=== PATIENT | female | born 1945 | race Caucasian/White ===

== ENCOUNTER → 2016-04-16 | Outpatient (CLI) | payer MEDICARE, BC | END | disposition home or self-care (01) | LOC: LABWHC1 10:01 | PROVIDERS: ATTEND Internal Medicine Critical Care Medicine | DX: J84.10 Pulmonary fibrosis, unspecified (principal) | CPT/HCPCS: 36415; 85652; 86038; 86200; 86431 ==

== ENCOUNTER → 2016-10-24 | Outpatient (CLI) | payer MEDICARE, BC ==
--- NOTE | 2016-10-24 08:20 | CT ---
EXAMINATION TYPE: CT chest abdomen wo con DATE OF EXAM: 10/24/2016 COMPARISON: HRCT chest 03/20/2016 HISTORY: 71-year-old female with thoracic ASD Aortic Aneurysm TECHNIQUE: Contiguous axial scanning of the chest and abdomen without IV contrast. Coronal and sagitt al reconstructions performed. CT DLP: 318.3 mGycm Automated exposure control for dose reduction was used. FINDINGS: CHEST: The heart is normal size without pericardial effusion. Mild aortic valvular calcifications are presen t along the right coronary cusp. Lack of IV contrast limits assessment of the vascular structures as well as the mediastinal and hilar structures. Within this limitation, there is ectasia of the ascending aorta at 3.7 cm. The proximal arch measures 3.3 cm, distal arch measures 2.7 cm and the upper descending thoracic aorta measures 2.4 cm. Distal descending thoracic aorta measures 2.2 cm. Small mediastinal lymph nodes are present. No thoracic lymphadenopathy by CT size criteria. Evaluation of the lungs shows some mild subpleural reticulations and patchy groundglass as well. Ther e is a 6 mm subpleural pulmonary nodule peripheral left lower lobe axial image 33, stable from 2015. No consolidation or pleural effusion. ABDOMEN: Tiny hiatal hernia. Lack of IV contrast limits assessment of the solid abdominal viscera, lymph nodes, and vascular struc tures. Noncontrast appearance of the liver, gallbladder, adrenal glands, kidneys, spleen, pancreas show no g ross abnormality. Incidental retroaortic left renal vein. Mild atherosclerotic calcifications within the abdominal aort a without aneurysm. Tiny fatty umbilical hernia. No dilated small bowel, free fluid, or free air. Mild overall stool burden. Diverticulosis in the vis ualized lower descending and sigmoid colon. No pericolonic inflammatory change. BONES: Degenerated dextroconvex scoliotic curvature of the lumbar spine with levels of severe disc/endplate degenerative change suggests that L2-L3 and L4-L5. Disc herniations are present in the lumbar spine a nd there are grade 1 retrolistheses at L1-L2, L2-L3, L3-L4 with grade 1 anterolisthesis at L4-L5. Chr onic inferior endplate Schmorl's node of T9 vertebral body. No osseous destructive process. IMPRESSION: 1. NONCONTRAST EXAM. ECTATIC ASCENDING AORTA AT 3.7 CM. 2. INTERSTITIAL CHANGES REDEMONSTRATED IN THE LUNGS. SUSPECT SOME UNDERLYING FIBROSIS. NSIP AND INDOL ENT ATYPICAL INFECTIONS ARE DIFFERENTIAL CONSIDERATIONS. 3. THE 6 MM LEFT LOWER LOBE PULMONARY NODULE IS STABLE FROM 03/20/2016. ADDITIONAL FOLLOW-UP IN 12-18 MONTHS RECOMMENDED TO ENSURE STABILITY. 4. LOWER DESCENDING AND SIGMOID COLONIC DIVERTICULOSIS. 5. MODERATE TO ADVANCED DEGENERATIVE CHANGES IN THE LUMBAR SPINE.
== END | disposition home or self-care (01) ==
LOC: RADCTMAIN 07:08
PROVIDERS: ATTEND Internal Medicine Interventional Cardiology
DX: I77.811 Abdominal aortic ectasia (principal); K57.30 Diverticulosis of large intestine without perforation or abscess without bleeding; R91.1 Solitary pulmonary nodule; I77.810 Thoracic aortic ectasia
CPT/HCPCS: 71250; 74150

== ENCOUNTER → 2016-12-11 | Outpatient (CLI) | payer MEDICARE, BC ==
[2016-12-11 09:50] LABS: ALT 31 U/L (9-52); AST 22 U/L (14-36); Cholesterol 241 mg/dL (<200); Creatine Kinase 68 U/L (30-135); HDL Cholesterol 59 mg/dL (40-60)
== END | disposition home or self-care (01) ==
LOC: LABWHC1 08:39
PROVIDERS: ATTEND Internal Medicine Interventional Cardiology
DX: E78.00 Pure hypercholesterolemia, unspecified (principal)
CPT/HCPCS: 36415; 80061; 82550; 84450; 84460

== ENCOUNTER → 2018-03-10 | Outpatient (CLI) | payer MEDICARE, BC ==
--- NOTE | 2018-03-10 12:07 | CT ---
EXAMINATION TYPE: CT chest wo con DATE OF EXAM: 03/10/2018 COMPARISON: 03/10/2017 HISTORY: Cough, alveolar condition CT DLP: 146 mGycm. Automated Exposure Control for Dose Reduction was Utilized. TECHNIQUE: High-resolution CT scan of the thorax is performed without IV contrast. High-resolution c hest CT noncontiguous imaging limits evaluation for pulmonary nodules. FINDINGS: LUNGS: There is redemonstration of subpleural reticulation throughout the lungs as seen on the prior exam of 03/10/2017 with an overall peripheral predominance. Minimal honeycombing is seen at the right lung base such as on series 7 image 47. Subpleural left lower lobe pulmonary nodule again measures 6 mm unchanged from the prior seen on series 7 image 33. Consolidation seen within the right middle lobe near the diaphragm on series 7 image 33. This improv es on supine imaging relating to atelectasis. Very mild diffuse cylindrical bronchiectasis is seen. There is no pleural effusion or pneumothorax seen. The tracheobronchial tree is patent. MEDIASTINUM: Lack of IV contrast is noted to limit evaluation for mediastinal and especially hilar ad enopathy. There are no definitive greater than 1 cm hilar or mediastinal lymph nodes. There is decrea se in size of the previously noted borderline 9 mm aorticopulmonary window lymph node now measuring 7 mm in short axis. No cardiomegaly or pericardial effusion is seen. OTHER: Diverticula are seen of the colon and the visualized upper abdomen. Mild degenerative changes of the thoracic spine are seen. Curvilinear density near the spleen likely relates to splenule unchan ged from the prior. Small hiatal hernia is again seen. IMPRESSION: 1. Similar-appearing degree of interstitial fibrosis and right basilar honeycombing in comparison to the prior of 03/10/2017, minimally progressed from 03/20/2016. 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 2. Continued stability of a 6 mm solid left subpleural pulmonary nodule, likely benign. 3. Very mild cylindrical bronchiectasis.
== END ==
LOC: RADCTMAIN 09:35
PROVIDERS: ATTEND Internal Medicine Critical Care Medicine
DX: J84.10 Pulmonary fibrosis, unspecified (principal); R91.1 Solitary pulmonary nodule; J47.9 Bronchiectasis, uncomplicated
CPT/HCPCS: 71250

== ENCOUNTER → 2018-04-30 | Outpatient (CLI) | payer MEDICARE, BC | END | disposition home or self-care (01) | LOC: LABPAT 12:28 | PROVIDERS: ATTEND Orthopaedic Surgery | DX: Z01.812 Encounter for preprocedural laboratory examination (principal) | CPT/HCPCS: 87070 ==

== ENCOUNTER 2018-05-11 13:01 | Inpatient (IN) | payer MEDICARE, BC ==
--- NOTE | 2018-05-10 09:30 | HP ---
HISTORY AND PHYSICAL CHIEF COMPLAINT: Right knee pain. HISTORY OF PRESENT ILLNESS: Patient is a 72-year-old retired female who presents with progressive right knee pain, worsening over the past 3 months. She notes anterior medial pain along with swelling and stiffness. It worsens with prolonged activity. She has tried medications; however, notes significant interference of her normal function and activities. PAST MEDICAL HISTORY: Significant for pulmonary fibrosis, aortic aneurysm, and hypothyroidism. PAST SURGICAL HISTORY: Negative. CURRENT MEDICATIONS: Levothyroxine. ALLERGIES: CODEINE and CEPHALOSPORINS. FAMILY HISTORY: Significant for diabetes, heart disease and cancer. SOCIAL HISTORY: Negative for current tobacco or alcohol use. REVIEW OF SYSTEMS: A 16-point review of systems otherwise reviewed and is noncontributory. PHYSICAL EXAMINATION: On examination, the patient is approximately 5 foot tall, 150 pounds of mesomorphic habitus. HEENT exam is nonfocal. Neck is supple. She has painless passive motion of right hip. Straight leg raise is negative. Active motion right knee -12 to 100 degrees of flexion. She is tender about the medial joint line. Collaterals stable, Angie's negative, Nando's is equivocal. She has genu varum alignment. Her distal neurovascular exam appears to be intact in the right lower extremity. X-rays to include weightbearing, notch, lateral and Merchant views of the right knee obtained in the office show severe medial and patellofemoral compartment, narrowing along with a suprapatellar calcification. IMPRESSION: 1. 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 2. History of pulmonary fibrosis. RECOMMENDATIONS: I talked to the patient at length regarding her condition and treatment options. At this point, she is quite symptomatic and limited because of pain related to her osteoarthrosis. After a thorough discussion, she opts to proceed with surgery. We will plan to proceed with right total knee arthroplasty. Risks and benefits were discussed at length in layman's terms. We will institute DVT prophylaxis postoperatively. MMODL / IJN: [id number] /
[~2018-05-11 13:01] MED LIST: LIDOCAINE 1% 20 ML VIAL (10MG/ML) FOR IV START INTRADERMA PRN; MIDAZOLAM (PF) 2 MG/2 ML VIAL IV PRN; ONDANSETRON 4 MG/2 ML VIAL IVP ONE; TRANEXAMIC ACID 1,000 MG in SODIUM CHLORIDE 0.9% 100 ML IVPB PRN; TRANEXAMIC ACID 1,000 MG in SODIUM CHLORIDE 0.9% 50 ML IVPB ONE; ceFAZolin IN SWFI 2 GM/20 ML SYRINGE IVP ONE; fentaNYL (PF) 50 MCG/ML 2 ML AMP IV PRN
[2018-05-11] MEDS: LACTATED RINGERS 1,000 ML IV SCH (13:58)
[2018-05-11] MEDS: ACETAMINOPHEN TAB 500 MG TAB PO ONE ×2 (14:06→19:35)
[2018-05-11] MEDS: MELOXICAM 7.5 MG TAB PO ONE ×2 (14:07→19:36)
[2018-05-11] MEDS: DEXAMETHASONE SOD PHOSPHATE 10 MG/ML 1 ML VIAL IV ONE ×2 (14:09→19:37)
[2018-05-11] MEDS ORDERED: ROPIVACAINE 1,100 MG, SODIUM CHLORIDE 0.9% 500 ML 330 ML MISCELLANE PRN ×2 (14:46)
--- NOTE | 2018-05-11 14:50 | P.ONQ ---
Anesthesiology Proc Note - PNB - Peripheral Nerve Block Performed Right Adductor Canal Infusion Time Out Performed: Yes Procedure Start Time: 14:17 Indication: Acute Post-Operative Pain, Analgesia Specifically requested for management of pain by DrEda: Ezekiel Velázquez Sedation Type: Sedate with meaningful contact maintained Preparation: Sterile Prep Position: Supine Catheter Depth at Skin (cm): 7 Catheter: Indwelling Needle Types: Other (see comment) (Pajunk) Needle Size: 100mm (4") Needle Gauge: 18 Technique: Ultrasound Injectate: 0.5% Ropivacaine (see comment for volume) (20 cc) Blood Aspirated: No Pain Paresthesia on Injection Noted: No Resistance on Injection: Normal Events: Uneventful and Well Tolerated
[2018-05-11] MEDS ORDERED: ROPIVACAINE 246.25 MG, EPINEPHrine 0.5 MG, KETOROLAC 30 MG, cloNIDine HCL/PF 80 MCG, WA... MISCELLANE ONE ×5 (15:32)
[2018-05-11] MEDS ORDERED: PHENYLEPHRINE-0.9% NACL SYG 1 MG/10 ML SYRINGE ONE (16:10)
[2018-05-11] MEDS ORDERED: PROPOFOL 10 MG/ML 20 ML VIAL IV ONE (16:10)
[2018-05-11] MEDS ORDERED: MIDAZOLAM 2 MG/2 ML VIAL ONE (16:10)
[2018-05-11] MEDS ORDERED: SODIUM CHLORIDE 0.9% 100 ML BAG ONE (16:10)
[2018-05-11] MEDS ORDERED: fentaNYL (PF) 50 MCG/ML 2 ML AMP ONE (16:10)
[2018-05-11] MEDS ORDERED: TRANEXAMIC ACID 1,000 MG/10 ML VIAL ONE (16:10)
[2018-05-11] MEDS ORDERED: CLINDAMYCIN 1,800 MG in SODIUM CHLORIDE 0.9% IRRIGATIO 3,000 ML IRRIGATION ONE (16:51)
[2018-05-11] MEDS ORDERED: LACTATED RINGERS 1,000 ML IV ONE ×2 (16:51)
[2018-05-11] MEDS ORDERED: MAGNESIUM HYDROXIDE 2,400 MG/10 ML CUP PO PRN (17:55)
[2018-05-11] MEDS ORDERED: HYDROcodone/APAP 5-325MG 1 EACH TAB PO PRN ×2 (17:55)
[2018-05-11] MEDS ORDERED: HYDROmorphone 0.5 MG/0.5 ML SYRINGE IVP PRN (17:55)
[2018-05-11] MEDS ORDERED: traMADol 50 MG TAB PO PRN (17:55)
[2018-05-11] MEDS ORDERED: HYDROmorphone 1 MG/ML 1 ML SYRINGE IVP PRN (17:55)
[2018-05-11] MEDS ORDERED: NALOXONE 0.4 MG/ML 1 ML VIAL IV PRN (17:55)
--- NOTE | 2018-05-11 18:24 | P.OP ---
Date of Procedure: 05/11/18 Preoperative Diagnosis: Right knee severe tricompartmental osteoarthrosis Postoperative Diagnosis: Same Procedure(s) Performed: Right total knee arthroplastycementedcruciate retaining Implants: [employer] size 5 cemented femoral component, size 4 cemented tibial component, 9 mm articular surface, and 32 mm cemented patellar component. This is a cruciate retaining implant. Anesthesia: regional, local, spinal Surgeon: Ezekiel Velázquez Home Service Consultant #1: Tobin Magana Estimated Blood Loss (ml): 50 Pathology: other Condition: stable Disposition: PACU Indications for Procedure: The patient's a 72-year-old female presents with progressive right knee pain secondary to osteoarthritis despite conservative measures. A discussion of the risks and benefits of operative intervention versus continued conservative measures was made with the patient. She opted to proceed with surgery. Operative risks to include infection, neurovascular injury, development of blood clots, possible component loosening, possible component failure and need for subsequent procedures was discussed. Informed consent was obtained. Operative Findings: As below Description of Procedure: The patient was brought to the operating room, and after induction of spinal anesthesia the right lower extremity was prepped and draped in a normal fashion. The tourniquet was inflated to 270 mmHg. A longitudinal incision extending 3 finger breaths above the superior pole of the patella extending to the medial aspect the tibial tubercle was then made. The skin and subcutaneous tissues were divided sharply. Electrocautery was used for hemostasis. A medial parapatellar arthrotomy was then performed. The medial soft tissues to include the superficial and deep portions of the medial collateral ligament as well as the medial hamstring tendons were elevated subperiosteally. The proximal medial tibia osteophytes were carefully removed. The patella was everted. The knee was flexed. A portion of the retropatellar fat pad was excised sharply. The anterior cruciate ligament was sacrificed. A starting hole was made in the distal femur 1 cm anterior to the posterior cruciate origin. An intramedullary femoral guide was gently inserted planning on 5 valgus distal cut with 9 mm distal resection. The cutting block was pinned in place. The distal cut was then made. The posterior referencing sizing guide was utilized. 3 of external rotation was built into the system and verified off the trans-epicondylar axis and the posterior condyles. I felt size 5 was most appropriate. The cutting block was pinned in place. The anterior, posterior, and chamfer cuts were then made. The bone fragments were removed. A sulcus cut was then made with the appropriate guide. The trial size 5 femoral component was then placed and was fully seated. There was good anterior to posterior and medial to lateral fit. The distal peg holes were then drilled. The trial component was then removed. Attention was then paid towards preparing the proximal tibia. An extra medullary guide was utilized in line with the tibial shaft and second metatarsal distally. A 7 posterior slope was planned. I planned on 2 mm resection from the medial compartment. The cutting block was pinned in place. The proximal tibial cut was then made. The bone was removed in one fragment. The remnants of the medial and lateral menisci were excised the capsule junction with electrocautery. The tibia sized most appropriately at size 4. The posterior osteophytes off the distal femur were carefully removed with a curved osteotome. The trial tibial and femoral components were placed along with a 9 millimeters articular surface. I was able to obtain full flexion and extension with good stability with varus and valgus stress. After several flexion and extension cycles, the tibial rotation was marked with electrocautery in line with the medial one third of the tibial tubercle. Attention was then paid towards preparing the patella. A patella reamer was utilized taking this down to 14 mm of bone stock. A good flush cut was made. The patella sized most appropriately at 32 millimeters. The peg holes were then drilled. The trial component was placed. The knee was taken through a range of motion. I had good patellofemoral tracking with no hands technique. The trial components were then removed. The tibia was prepared in the appropriate rotation with appropriate drill and keel punch. The flexion and extension gaps were checked and felt to be symmetric. The posterior soft tissues were injected with ropivacaine. The bony surfaces were prepared with pulsatile lavage and dried. The deep tibial component was then cemented in place and was fully seated. Excess cement was removed. The femoral component was cemented in place and was fully seated. Again excess cement was removed. The trial 9 millimeters surface was then inserted in the knee was put in full extension. The patella component was cemented in place. After the cement had sufficiently hardened, the knee was again taken through a range of motion. Again there was good stability in flexion and extension with varus and valgus stress. The trial articular surface was then removed. The final articular surface was placed and was impacted. Care was taken to avoid any soft tissue interposition. Pulsatile lavage was again utilized. The tourniquet was deflated with approximately 65 minutes total tourniquet time. There was minimal drainage therefore a deep drain was not placed. The medial parapatellar arthrotomy was then closed with #2 Ethibond suture. The subcutaneous tissues were reapproximated interrupted 2-0 Vicryl sutures. The skin was reapproximated with 3-0 subarticular strata fix suture. Skin tape and adhesive was applied. A sterile dressing was applied. The patient was then awoken from sedation and transferred to recovery room in good condition. Blood loss was estimated at 50 milliliters. No complications were incurred. Sponge and needle counts were correct at the end the case. Carlos MICHELLE assisted during the major components this case to include exposure, bone resection, and implantation.
--- NOTE | 2018-05-11 19:02 | XR ---
PROCEDURE: XR knee limited RT - 3V DATE AND TIME: 05/11/2018 6:36 PM CLINICAL INDICATION: PHH; Evaluation for Postop abnormality and alignment TECHNIQUE: Department protocol COMPARISON: None FINDINGS: The femoral component of the TKR appears anatomic in its positioning and alignment. The tibial component appears anatomic in its positioning alignment on the lateral view, but the front al view shows the intramedullary heron of the tibial component appears closer to the lateral tibial cor jez than the medial tibial cortex. IMPRESSION: TIBIAL COMPONENT FINDINGS NOTED.
[2018-05-11] MEDS ORDERED: guaiFENesin 600 MG TABLET.ER PO PRN (21:08)
[2018-05-11] MEDS: SENNOSIDES-DOCUSATE SODIUM 1 EACH TAB PO SCH (21:24)
[2018-05-11 21:36] VITALS: BMI 28.5
[2018-05-11] MEDS: METOPROLOL TARTRATE 25 MG TAB PO SCH (23:44)
[2018-05-11] MEDS: ceFAZolin IN SWFI 2 GM/20 ML SYRINGE IVP SCH (23:45)
[2018-05-12] MEDS: LEVOTHYROXINE 50 MCG TAB PO SCH (05:50)
[2018-05-12 06:54] LABS: Basophils % (A) 0 %; Eosinophils # (A) 0.1 k/uL (0-0.7); Eosinophils % (A) 1 %; HCT 35.4 % (34.0-46.0); HGB 11.3 gm/dL (11.4-16.0); Lymphocytes % (A) 9 %; MCH 32.7 pg (25.0-35.0); MCHC 32.1 g/dL (31.0-37.0); MCV 101.8 fL (80.0-100.0); Macrocytosis Slight; Mean Platelet Volume 6.2; Monocytes # (A) 0.6 k/uL (0-1.0); Monocytes % (A) 5 %; Neutrophils # (A) 9.2 k/uL (1.3-7.7); Neutrophils % (A) 85 %; Platelet Count 236 k/uL (150-450); RBC 3.47 m/uL (3.80-5.40); RDW 12.7 % (11.5-15.5); WBC 10.9 k/uL (3.8-10.6)
--- NOTE | 2018-05-12 07:49 | CONS ---
CONSULTATION REASON FOR CONSULTATION: Consultation regarding medical management. HISTORY OF PRESENT ILLNESS: This 72-year-old is status post right total knee arthroplasty. The patient was seen in the recovery room in presence of the recovery room nurse. The recovery room nurses relates some of the details postop. The patient has been doing well. No reported hemodynamic instability. The patient's condition was also reviewed with Dr. Velázquez's medical clerical assistant. The surgery went well. There was no major bleeding issues. The patient had no issues from anesthesia according to the postop nurse. The patient's full detailed preoperative consult is available. REVIEW OF SYSTEMS: NEURO: Denies any headaches, dizziness. PSYCH: Some apprehension. CARDIAC: Denies chest pain, angina, palpitation. RESPIRATORY: Denies shortness of breath, cough, hemoptysis. GI: No nausea, vomiting, abdominal pain. : No symptoms. EXTREMITIES: Denies pain. CONSTITUTIONAL: No fever or chills. PHYSICAL EXAMINATION: Pleasant female at present in no distress. VITAL SIGNS: Blood pressure 130/70, pulse 104, respirations 18, pulse ox 100% with 2 L nasal cannula. HEENT: Normocephalic. NECK: Supple. No JVD. CHEST: Clear to auscultation. CARDIAC: Normal S1, S2 with no gallops, murmurs appreciated. ABDOMEN: Soft. Bowel sounds present. Activity in bowel sounds present. Extremities reveal no edema. Right leg has a long Twin wrap. The patient has a nerve block pump in place. ASSESSMENT: 1. Pulmonary fibrosis, stable. 2. History of hypothyroidism, on replacement therapy. 3. History of borderline thoracic aortic aneurysm. 4. Status post right knee arthroplasty. PLAN: The patient is stable, continue present medical regimen. Patient is reassured. Continue medications as prior to admission. The patient's metoprolol tartrate to be resumed. The patient condition also discussed with the family. Prognosis guarded. Will hold off major narcotics however as she is concerned that they may cause her significant nausea and vomiting. MMODL / IJN: [id number] /
[2018-05-12] MEDS: ceFAZolin IN SWFI 2 GM/20 ML SYRINGE IVP SCH (08:31)
[2018-05-12] MEDS: RIVAROXABAN 10 MG TAB PO SCH (08:31)
[2018-05-12] MEDS: METOPROLOL TARTRATE 25 MG TAB PO SCH ×2 (08:32→22:22)
[2018-05-12] MEDS: ONDANSETRON 4 MG/2 ML VIAL IVP PRN ×2 (08:40→14:37)
--- NOTE | 2018-05-12 10:19 | P.PN ---
Progress Note - Text Anesthesia POD 1. Patient is status post right under spinal anesthesia with a right adductor canal catheter placed for postoperative pain relief. With ropivacaine 0.2% running at 8 cc's per hour, the patient's VAS is (0, 4). Catheter site is clean dry and intact.
--- NOTE | 2018-05-12 11:03 | P.PN ---
Subjective Progress Note Date: 05/12/18 Principal diagnosis: Status post right total knee arthroplasty Patient evaluated at bedside today, she is family present. She's resting comfortably. She did have significant nausea yesterday afternoon, likely from IV pain medication. This has improved today. She has ambulated with therapy. She denies any chest pain or shortness of breath. Objective - Vital Signs Vital signs: Vital Signs Temp 98.0 F 05/12/18 07:05 Pulse 76 05/12/18 07:05 Resp 20 05/12/18 07:05 BP 114/71 05/12/18 07:05 Pulse Ox 98 05/12/18 08:34 Intake & Output 05/11/18 05/12/18 05/12/18 18:59 06:59 18:59 Intake Total 1501 1120 Output Total 50 Balance 1451 1120 Intake: IV 1501 Intake, IV Titration 400 Amount Lactated Ringers 1,000 ml 400 @ 50 mls/hr IV .Q20H [facility] Rx#:[id number] Oral 720 Output: Estimated Blood Loss 50 Other: Voiding Method Toilet # Voids 3 - Exam Right lower extremity: Incision is clean, dry, and intact. The exofin fusion tape is in good condition. There is minimal soft tissue swelling and ecchymosis surrounding the medial and lateral aspects of the incision. Calf is soft, no tenderness with palpation. Plantar flexion, dorsiflexion, EHL, FHL are intact. Sensory exam to light touch throughout the extremity is intact, dorsal pedis pulses 2+. - Labs CBC & Chem 7: 05/12/18 06:15 Labs: Abnormal Lab Results - Last 24 Hours (Table) 05/12/18 Range/Units 06:15 WBC 10.9 H (3.8-10.6) k/uL RBC 3.47 L (3.80-5.40) m/uL Hgb 11.3 L (11.4-16.0) gm/dL MCV 101.8 H (80.0-100.0) fL Neutrophils # 9.2 H (1.3-7.7) k/uL Assessment and Plan Plan: Assessment: Postoperative day 1 status post right total knee arthroplasty Plan: Pain control, continue oral medication GI and DVT prophylaxis, continue current medication Wound care instructions discussed Encourage incentive spirometer Medical's recommendations Discharge planning: Likely discharged home tomorrow Time with Patient: Less than 30
[2018-05-12] MEDS: FAMOTIDINE 20 MG/2 ML VIAL IV SCH ×2 (11:15→22:22)
[2018-05-12] MEDS: LACTATED RINGERS 1,000 ML IV SCH ×2 (15:55→23:09)
[2018-05-12] MEDS: MULTIVITAMINS, THERA 1 EACH TAB PO SCH (15:56)
[2018-05-12] MEDS: KETOROLAC 30 MG/ML 1 ML VIAL IVP SCH ×2 (17:45→23:08)
[2018-05-12] MEDS ORDERED: MAG HYDROX/AL HYDROX/SIMETH 30 ML CUP PO PRN (19:04)
[2018-05-12] MEDS: SENNOSIDES-DOCUSATE SODIUM 1 EACH TAB PO SCH (22:22)
--- NOTE | 2018-05-12 23:07 | PN ---
PROGRESS NOTE CHIEF COMPLAINT: Re-evaluation. HISTORY OF PRESENT ILLNESS: This is a 72-year-old female who was admitted to the hospital. She has undergone right total knee arthroplasty. The patient was seen this morning and again this evening. This morning she was feeling fairly well. She had no symptoms or any major concerns. However, about mid morning she did have significant emesis, where she vomited the meals she had eaten. This evening when she was seen she was continuing to feel some nausea. She had received Zofran and Pepcid. REVIEW OF SYSTEMS: NEURO: Denies any headaches, dizziness. PSYCH: Some anxiety. CARDIAC: No chest pain, angina, palpitations. RESPIRATORY: No shortness of breath, cough, hemoptysis. GI: Nausea, belching and episode of vomiting. No abdominal pain. No diarrhea. No constipation. : No symptoms of dysuria or hematuria. EXTREMITIES: Some pain in the right knee. CONSTITUTIONAL: No fever, chills. PHYSICAL EXAMINATION: Pleasant female in no distress. Vital signs reveal temperature 98, pulse 76, respirations 18, blood pressure 114/71, pulse ox 96% on room air. HEENT: Normocephalic. NECK: No JVD. CHEST: Clear to auscultation and percussion. CARDIAC: Normal S1, S2. No gallops, murmurs, rubs. ABDOMEN: Soft. No palpable masses. Bowel sounds normal. No organomegaly. No abdominal bruits. Extremities reveal no edema. Neurologically awake, alert, oriented x3 with well-coordinated movements in both upper extremities. LABORATORY ASSESSMENT: Hemoglobin is 11.3, white count 10.9. ASSESSMENT: 1. Nausea and vomiting post surgery related to pain medications. 2. Anemia secondary to acute blood loss. 3. Status post right total knee arthroplasty. 4. History of borderline thoracic aortic aneurysm. 5. Idiopathic pulmonary fibrosis. PLAN: The patient is stable. Continue present medical regimen. Patient is on antiemetics, Pepcid, and we will add some Maalox to her regimen. Prognosis remains guarded. Condition discussed with the patient and family. MMODL / IJN: [id number] /
[2018-05-13] MEDS: KETOROLAC 30 MG/ML 1 ML VIAL IVP SCH (05:12)
[2018-05-13] MEDS: LEVOTHYROXINE 50 MCG TAB PO SCH (05:13)
--- NOTE | 2018-05-13 08:46 | P.PN ---
Progress Note - Text Progress Note Date: 05/13/18 68-year-old female status post right total knee arthroplasty postop day #2. She has an abductor canal catheter VAS is a 2-4-10 in severity depending on range of motion and movement. Current rate is 8 ML's an hour. She is using her CPM machine. She has no motor sensory deficits. Patient is progressing well and stable for discharge.
[2018-05-13] MEDS: FAMOTIDINE 20 MG/2 ML VIAL IV SCH (09:58)
[2018-05-13] MEDS: METOPROLOL TARTRATE 25 MG TAB PO SCH ×2 (09:58→21:18)
[2018-05-13] MEDS: RIVAROXABAN 10 MG TAB PO SCH (09:58)
--- NOTE | 2018-05-13 11:06 | P.PN ---
Subjective Progress Note Date: 05/13/18 Principal diagnosis: Status post right total knee arthroplasty Patient evaluated at bedside today, she is family present. She's resting comfortably. She has ambulated with therapy. She denies any chest pain or shortness of breath. Objective - Vital Signs Vital signs: Vital Signs Temp 98.4 F 05/13/18 09:54 Pulse 64 05/13/18 09:52 Resp 16 05/13/18 09:52 BP 117/64 05/13/18 09:52 Pulse Ox 99 05/13/18 09:52 Intake & Output 05/12/18 05/13/18 05/13/18 18:59 06:59 18:59 Intake Total 500 800 Balance 500 800 Intake: Intake, IV Titration 500 800 Amount Lactated Ringers 1,000 ml 500 800 @ 50 mls/hr IV .Q20H [facility] Rx#:[id number] Other: Voiding Method Toilet Toilet # Voids 3 2 - Exam Right lower extremity: Incision is clean, dry, and intact. The exofin fusion tape is in good condition. There is minimal soft tissue swelling and ecchymosis surrounding the medial and lateral aspects of the incision. Calf is soft, no tenderness with palpation. Plantar flexion, dorsiflexion, EHL, FHL are intact. Sensory exam to light touch throughout the extremity is intact, dorsal pedis pulses 2+. - Labs CBC & Chem 7: 05/12/18 06:15 Assessment and Plan Plan: Assessment: Postoperative day #2 status post right total knee arthroplasty Plan: Pain control, will adjust oral medication GI and DVT prophylaxis, continue current medication Wound care instructions discussed Encourage incentive spirometer Medical's recommendations Discharge planning: Hopeful discharge home today Time with Patient: Less than 30
[2018-05-13] MEDS ORDERED: MELOXICAM 7.5 MG TAB PO SCH (12:00)
[2018-05-13] MEDS: ACETAMINOPHEN TAB 500 MG TAB PO PRN ×2 (12:20→17:22)
[2018-05-13] MEDS: MULTIVITAMINS, THERA 1 EACH TAB PO SCH (12:22)
--- NOTE | 2018-05-13 15:59 | P.DS ---
Providers Date of admission: 05/11/18 13:01 Expected date of discharge: 05/13/18 Attending physician: Ezekiel Velázquez Consults: 05/11/18 17:59 Consult Physician Routine Consulting Provider: Ugo Shrestha Consult Reason/Comments: Medical Management Do you want consulting provider notified?: Yes Primary care physician: Ugo Shrestha Hospital Course: Date of admission: 05/11/2018 Date of discharge: 05/13/2018 Admission diagnosis: Status post right total knee arthroplasty Discharge diagnosis: Same Attending physician: Dr. Velázquez Surgical procedures: Right total knee arthroplasty Brief history: Patient is a 72-year-old female with a history of with progressive primary right knee osteoarthritis. At this point patient has failed conservative treatment measures and has opted to proceed with a elective right total knee arthroplasty. Hospital course: Details of patient's surgery can be found in operative report. Patient tolerated the procedure well and was subsequently transported to orthopedic floor. Patient's orthopeidc and medical care was provided daily. Patient had daily laboratory tests performed for evaluation of overall blood counts. Patient had daily physical therapy to include strengthening range of motion as well as education with walker ambulation. Patient had daily CPM usage as part of their physical therapy program. Patient was treated with Xarelto for their postoperative DVT prophylaxis during their inpatient stay. Patient was noted to have a relatively uneventful postoperative course. Patient reported satisfactory pain control with oral pain medications by postoperative day 0. Patient showed satisfactory progress with physical therapy. Patient moved steadily through the program and had no difficulty meeting the goals by postoperative day 2. Given patient's otherwise satisfactory course and having met physical therapy goals, plan is to discharge patient home on postoperative day 2. Discharge condition/disposition: Patient will be discharged home in stable condition. Discharge medications: Instructions are given on resumption of patient's normal daily medications per primary care recommendation, in addition patient will be prescribed Mobic 15 mg, Eliquis 2.5mg. Discharge instructions: 1. Wound care and infection precautions, keep incision dry and covered while showering, no lotions, creams, moisturizers. No soaking, tubs, pools, hottubs. Do not scrub over the incision. 2. Weight-bear as tolerated with walker / cane until follow-up. 3. Ice and elevate when necessary. Do not exceed 20 minutes per hour with ice pack. 4. Utilize compression sleeve until seen at first follow up appointment. 5. Visiting nursing care. 6. Home physical therapy including home CPM. 7. Pain meds and anticoagulants per prescription. 8. Pain medication has potential to cause constipation. Increase oral fluid and fiber intake. Contact primary care provider if you have not had a bowel movement within 48 hours after discharge 9. No anti-inflammatory medication until discussed at first post operative visit, this including Motrin, Aleve, Mobic, Diclofenac. 10. Follow up in office at 2 weeks postop with Carlos Magana PA-C 11. Follow up with your primary care doctor 7-10 days after discharge. 12. Contact [facility] with any questions, . Procedures: Right total knee arthroplasty Patient Condition at Discharge: Good Plan - Discharge Summary Discharge Rx Participant: No New Discharge Prescriptions: New Apixaban [Eliquis] 2.5 mg PO BID #30 tab Meloxicam [Mobic] 15 mg PO DAILY #30 tab No Action Metoprolol Tartrate [Lopressor] 12.5 mg PO HS Metoprolol Tartrate [Lopressor] 25 mg PO QAM Levothyroxine Sodium [Synthroid] 50 mcg PO DAILY Aspirin [Adult Low Dose Aspirin EC] 81 mg PO DAILY Promethazine/Dextromethorphan [Promethazine-Dm Syrup] 5 ml PO Q6HR PRN PRN Reason: Cough Lutein 20 mg PO DAILY Multivitamins, Thera [Multivitamin (formulary)] 1 tab PO DAILY Glucosam/Fuad-Msm1/C/Dom/Bosw [Glucosamine-Chondroitin Tablet] 2 tab PO BID Ascorbic Acid [Vitamin C] 500 mg PO DAILY Ubidecarenone [Co Q-10] 100 mg PO DAILY Naproxen Sodium [Aleve] 220 mg PO Q12HR PRN PRN Reason: Pain Pseudoephedrine HCl [Sudafed] 30 mg PO Q4HR PRN PRN Reason: Nasal Congestion guaiFENesin [Mucinex] 600 mg PO BID PRN PRN Reason: Cough Discharge Medication List Ascorbic Acid [Vitamin C] 500 mg PO DAILY 05/03/18 [History] Aspirin [Adult Low Dose Aspirin EC] 81 mg PO DAILY 05/03/18 [History] Glucosam/Fuad-Msm1/C/Dom/Bosw [Glucosamine-Chondroitin Tablet] 2 tab PO BID 07/16 [History] Levothyroxine Sodium [Synthroid] 50 mcg PO DAILY 05/03/18 [History] Lutein 20 mg PO DAILY 05/03/18 [History] Metoprolol Tartrate [Lopressor] 12.5 mg PO HS 05/03/18 [History] Metoprolol Tartrate [Lopressor] 25 mg PO QAM 05/03/18 [History] Multivitamins, Thera [Multivitamin (formulary)] 1 tab PO DAILY 05/03/18 [History ] Naproxen Sodium [Aleve] 220 mg PO Q12HR PRN 05/03/18 [History] Promethazine/Dextromethorphan [Promethazine-Dm Syrup] 5 ml PO Q6HR PRN 05/03/18 [History] Ubidecarenone [Co Q-10] 100 mg PO DAILY 05/03/18 [History] Pseudoephedrine HCl [Sudafed] 30 mg PO Q4HR PRN 05/11/18 [History] guaiFENesin [Mucinex] 600 mg PO BID PRN 05/11/18 [History] Apixaban [Eliquis] 2.5 mg PO BID #30 tab 05/13/18 [Rx] Meloxicam [Mobic] 15 mg PO DAILY #30 tab 05/13/18 [Rx] Follow up Appointment(s)/Referral(s): Ugo Shrestha MD [Primary Care Provider] - 05/18/18 2:45 pm [facility], [NON-STAFF] - As Needed Tobin Magana PAC [PHYSICIAN SHAMPOO TECHNICIAN] - 05/26/18 3:30 pm Activity/Diet/Wound Care/Special Instructions: Continuous Passive Motion machine ordered by 's office through [facility]: #[phone] Orthopedic Discharge Instructions: 1. Wound care and infection precautions, keep incision dry and covered while showering, no lotions, creams, moisturizers. No soaking, pools, hot tubs. Do not scrub over incision. 2. Weight-bear as tolerated with walker / cane until follow-up. 3. Ice and elevate when necessary. Do not exceed 20 minutes per hour with ice pack. 4. Utilize compression sleeve until seen at first follow up appointment. 5. Pain meds and anticoagulants per prescription. 6. Pain medication has potential to cause constipation. Increase oral fluid and fiber intake. Contact primary care provider if you have not had a bowel movement within 48 hours after discharge. 7. No anti-inflammatory medication until discussed at first post operative visit, this including Motrin, Aleve, Mobic, Diclofenac. 8. Follow up in office at 2 weeks postop with Carlos Magana PA-C 9. Follow up with your primary care doctor 7-10 days after discharge. 10. Contact [facility] with any questions, . Discharge Disposition: HOME WITH HOME HEALTH SERVICES
[2018-05-13] MEDS ORDERED: traMADol 50 MG TAB PO PRN (20:29)
[2018-05-13] MEDS ORDERED: KETOROLAC 30 MG/ML 1 ML VIAL IVP PRN (20:29)
[2018-05-13] MEDS: SENNOSIDES-DOCUSATE SODIUM 1 EACH TAB PO SCH (21:09)
[2018-05-13] MEDS ORDERED: LOPERAMIDE 2 MG CAP PO PRN (21:10)
--- NOTE | 2018-05-13 23:41 | PN ---
PROGRESS NOTE ATTENDING PHYSICIAN: Dr. Danny Shrestha. CHIEF COMPLAINT: Re-evaluation. HISTORY OF PRESENT ILLNESS: A 72-year-old female was admitted to the hospital and underwent right total knee arthroplasty. The patient had significant nausea and vomiting yesterday. [place] to be secondary to narcotics which have been discontinued. Patient was given Toradol with help. Her pain is controlled. She has had no further nausea or vomiting. She did eat well today. REVIEW OF SYSTEMS: NEURO: Denies any headaches or dizziness. PSYCH: No anxiety. CARDIAC: No chest pain, angina, palpitations. RESPIRATORY: No shortness of breath, cough, hemoptysis. GI: No nausea, vomiting, abdominal pain, diarrhea, constipation. No bowel movement. : No dysuria or hematuria. EXTREMITIES: Some pain in the right knee. CONSTITUTIONAL: No fevers or chills. PHYSICAL EXAMINATION: Pleasant female in no distress. VITAL SIGNS: Temperature 98.4, pulse 61, respirations 16, blood pressure 117/64, pulse ox 99 percent on room air. HEENT: Normocephalic. NECK: No JVD. CHEST: Clear to percussion on auscultation. Patient has dry crackles in the right base. CARDIAC: Normal S1, S2 with no gallops, murmurs. ABDOMEN: Soft. Bowel sounds active. EXTREMITIES: Trace edema right ankle. The patient's right knee is in an Twin wrap. NEUROLOGIC: Awake, alert, oriented x3 with well-coordinated coordinated movements of both upper and lower extremities. LABORATORY ASSESSMENT: None new. ASSESSMENT: 1. Anemia secondary to acute blood loss post surgery. 2. Right knee arthroplasty, status post right knee arthroplasty. 3. History of pulmonary fibrosis. PLAN: Patient is stable. Continue present medical regimen. Patient's condition discussed with the patient. Prognosis guarded. MMODL / IJN: [id number] /
[2018-05-14] MEDS: LACTATED RINGERS 1,000 ML IV SCH (00:28)
[2018-05-14] MEDS: LEVOTHYROXINE 50 MCG TAB PO SCH (06:08)
[2018-05-14 07:18] LABS: Basophils % (A) 1 %; Eosinophils # (A) 0.2 k/uL (0-0.7); Eosinophils % (A) 2 %; HCT 28.5 % (34.0-46.0); Lymphocytes % (A) 16 %; MCH 34.7 pg (25.0-35.0); MCHC 34.3 g/dL (31.0-37.0); MCV 101.4 fL (80.0-100.0); Mean Platelet Volume 6.3; Monocytes # (A) 0.5 k/uL (0-1.0); Monocytes % (A) 8 %; Neutrophils # (A) 4.4 k/uL (1.3-7.7); Neutrophils % (A) 72 %; Platelet Count 177 k/uL (150-450); RBC 2.81 m/uL (3.80-5.40); RDW 12.8 % (11.5-15.5); WBC 6.1 k/uL (3.8-10.6)
[2018-05-14 07:20] LABS: HGB 9.8 gm/dL (11.4-16.0)
[2018-05-14] MEDS ORDERED: ACETAMINOPHEN TAB 500 MG TAB PO PRN (08:18)
[2018-05-14] MEDS: IBUPROFEN 800 MG TAB PO SCH ×2 (08:58→12:24)
[2018-05-14] MEDS: METOPROLOL TARTRATE 25 MG TAB PO SCH (08:58)
[2018-05-14] MEDS: RIVAROXABAN 10 MG TAB PO SCH (08:58)
[2018-05-14] MEDS ORDERED: FAMOTIDINE 20 MG TAB PO SCH (09:00)
[2018-05-14] MEDS ORDERED: FAMOTIDINE 20 MG/2 ML VIAL IV SCH (09:00)
--- NOTE | 2018-05-14 10:05 | CDI ---
Documentation Clarification Form Date: 05/14/2018 From: Nikkie Garcia RN CCDS Admit Date: 05/11/2018 1:01:00 PM Patient Name: Tonie Garcia Visit Number: [id number] Discharge Date: ATTENTION: The Clinical Documentation Specialists (CDI) and [facility] Coding Staff appreciate your assistance in clarifying documentation. Please respond to the clarification below the line at the bottom and electronically sign. The CDI & [facility] Coding staff will review the response and follow-up if needed. Please note: Queries are made part of the Legal Health Record. If you have any questions, please contact the author of this message via ITS. Dr. Ugo Shrestha Anemia secondary to acute blood loss post surgery is documented in the progress note dated 05/13/2018 . Patients Admitting Diagnosis: Right Knee severe Osteoarthritis with Right total knee arthroplasty Post-Operative Diagnosis: Right Knee severe Osteoarthritis with Right total knee arthroplasty Procedure performed: Right total knee arthroplasty cemented cruciate retaining. History/Risk Factors: 72 yr old female presents to [facility] for elective knee surgery. Medical HX Pulmonary fibrosis, aortic aneurysm, hypothyroidism. Clinical Indicators: Hgb 05/12/2018 Hgb 11.3 Treatment: monitoring Hgb and Hct on 05/14/2018 In order to accurately reflect this patients severity of illness, please clarify if the post-operative diagnosis of acute blood loss anemia is: An expected post-procedural or post-surgical condition An unexpected post-procedural or post-surgical condition related to surgical care Other, please specify Unable to determine (Last Revision: June 2017) MTDD
[2018-05-14] MEDS: MULTIVITAMINS, THERA 1 EACH TAB PO SCH (12:24)
[2018-05-14 16:35] VITALS: BP 129/83; PULSE 74; RESP 16; TEMP 97.9
[2018-05-15] MEDS ORDERED: FAMOTIDINE 20 MG TAB PO SCH (09:00)
--- NOTE | 2018-05-15 09:07 | PN ---
PROGRESS NOTE DATE OF SERVICE: 05/14/2018 ATTENDING PHYSICIAN: Dr. Velázquez. CONSULTING PHYSICIAN: Dr. Jonathan Shrestha. CHIEF COMPLAINT: Re-evaluation. HISTORY OF PRESENT ILLNESS: This is a 72-year-old female seen on 05/14/2018. The patient is status post a right total knee arthroplasty. She complains of significant pain. The patient, however, was given Mobic which only helped her pain for a couple hours. She was given Toradol with significant pain help. She has declined use of any narcotics as that makes her sick and nauseous. The patient declining tramadol too. After discussion with her and her spouse, we have come to a plan that the patient will use Motrin 800 mg t.i.d. and Tylenol 1000 mg t.i.d. in between the Motrin doses. This way, around the clock, she will have fairly good pain control. If this works out, she could be discharged home on that regimen. The patient's condition otherwise remains guarded. REVIEW OF SYSTEMS: Neuro: Denies any headaches, dizziness. Psych: Anxiety. Cardiac: No chest pain, angina, palpitations. Respiratory: Denies shortness of breath, cough. GI no nausea, vomiting, abdominal pain. The patient had diarrhea requiring Imodium. no symptoms of dysuria or hematuria. Extremities: Pain in the right knee. Constitutional: No fever or chills. PHYSICAL EXAMINATION: Pleasant female at present. No distress. Vital signs reveals temperature 98.4, pulse 85, respirations 17, blood pressure 116/65, pulse ox 95 percent on room air. HEENT: Normocephalic. NECK: No JVD. CHEST: Clear to percussion. Dry crackles right base. Cardiac: Normal S1, S2 with no gallops, murmurs. ABDOMEN: Soft. Bowel sounds present. EXTREMITIES: No edema. Right knee status post surgery. NEUROLOGIC: Awake, alert, oriented x3 with well-coordinated movements. LABORATORY DATA: None new. ASSESSMENT: 1. Status post right knee arthroplasty. 2. Pain, right knee. 3. Drug sensitivity to narcotics. 4. Anemia secondary to acute blood loss post surgery. PLAN: Continue present medical regimen. As mentioned above, try Motrin and Tylenol. If pain symptoms stable could be discharged home today. The patient's condition discussed with the patient and spouse. Discussed risk of using nonsteroidal, especially in the setting of using Eliquis. She should be on Eliquis for about 10 days and then she could start going on aspirin. She also will take Zantac or Pepcid [id number] twice a day while she is on Motrin. TONIO / ROGELIO: [id number] /
--- NOTE | 2018-05-15 12:52 | P.PN ---
Subjective Progress Note Date: 05/14/18 Addendum to the progress note. Diagnosis should include anemia of acute blood loss as an expected outcome of the present surgery Objective - Vital Signs Vital signs: Vital Signs Temp 97.9 F 05/14/18 15:00 Pulse 74 05/14/18 15:00 Resp 16 05/14/18 15:00 BP 129/83 05/14/18 15:00 Pulse Ox 96 05/14/18 15:00 Intake & Output 05/14/18 05/15/18 05/15/18 18:59 06:59 18:59 Other: Voiding Method Toilet # Voids 2 - Labs CBC & Chem 7: 05/14/18 06:57
== END 2018-05-14 17:33 | disposition home health service (06) | DRG 470 ==
LOC: 2ORMAIN 13:01 → 4SSUR 18:24
PROVIDERS: ADMIT Orthopaedic Surgery; ATTEND Orthopaedic Surgery
PROC: 0SRC069 Replacement of Right Knee Joint with Oxidized Zirconium on Polyethylene Synthetic Substitute, Cemented, Open Approach (ICD-10-PCS; principal; 2018-05-11 15:00)
DX: M17.11 Unilateral primary osteoarthritis, right knee (principal); D62 Acute posthemorrhagic anemia; J84.112 Idiopathic pulmonary fibrosis; I71.2 Thoracic aortic aneurysm, without rupture; M21.161 Varus deformity, not elsewhere classified, right knee; E03.9 Hypothyroidism, unspecified; Z83.3 Family history of diabetes mellitus; Z82.49 Family history of ischemic heart disease and other diseases of the circulatory system; Z80.9 Family history of malignant neoplasm, unspecified; Z88.1 Allergy status to other antibiotic agents; Z88.5 Allergy status to narcotic agent; Z88.0 Allergy status to penicillin; Z88.8 Allergy status to other drugs, medicaments and biological substances; Z91.018 Allergy to other foods
CPT/HCPCS: 85025; 88300; 94760

== ENCOUNTER → 2019-02-28 | Outpatient (CLI) | payer MEDICARE, BC ==
--- NOTE | 2019-02-28 12:57 | CT ---
EXAMINATION TYPE: CT chest wo con DATE OF EXAM: 02/28/2019 COMPARISON: 03/10/2018 and 03/10/2017 HISTORY: Pulmonary fibrosis CT DLP: 349.8 mGycm. Automated Exposure Control for Dose Reduction was Utilized. TECHNIQUE: CT scan of the thorax is performed without IV contrast. Noncontiguous slices limiting mellisa luation for pulmonary nodule. FINDINGS: LUNGS: Again seen is a subpleural reticulation with a peripheral predominance dating back to 03/10/20 17. The known honeycombing at the right lung base does not appear to have progressed from the prior o f 03/10/2018. This is mild. No new areas of honeycombing. Very mild diffuse cylindrical bronchiectasi s remains. No new focal consolidation or sizable pulmonary mass. No pleural effusion or pneumothorax. The previously seen 6 mm pulmonary nodule the left lower lobe is not well visualized given the nonco ntiguous slices. This appears to be present in the subpleural location on series 8 image 17. No inter shakeel growth. The lungs are grossly clear, there is no concerning parenchymal mass or nodule identified . There is no pleural effusion or pneumothorax seen. The tracheobronchial tree is patent. MEDIASTINUM: Lack of IV contrast is noted to limit evaluation for mediastinal and especially hilar ad enopathy. There are no definitive greater than 1 cm hilar or mediastinal lymph nodes. No cardiomega ly or pericardial effusion is seen. OTHER: Few colonic diverticula are incidentally noted without pericolonic fat stranding. Very small h iatal hernia again noted. Mild to moderate degenerative changes of the spine. IMPRESSION: No progression in the known pulmonary fibrosis with minimal right basilar honeycombing un changed in comparison to 03/10/2017. Again considerations are for Early UIP or fibrotic NSIP.
== END | disposition home or self-care (01) ==
LOC: RADCTMAIN 12:15
PROVIDERS: ATTEND Internal Medicine
DX: J84.10 Pulmonary fibrosis, unspecified (principal); I71.2 Thoracic aortic aneurysm, without rupture
CPT/HCPCS: 71250

== ENCOUNTER → 2020-02-15 | Outpatient (CLI) | payer MEDICARE, BC ==
--- NOTE | 2020-02-15 11:09 | BD ---
EXAMINATION TYPE: Axial Bone Density DATE OF EXAM: 02/15/2020 COMPARISON: NONE CLINICAL HISTORY: Height: 4 FT 10 1/2 IN Weight: 149 FRAX RISK QUESTIONS: Alcohol (3 or more units per day): NO Family History (Parent hip fracture): NO Glucocorticoids (More than 3mos): NO (Ex: prednisone, prednisolone, methylprednisolone, dexamethasone, and hydrocortisone). History of Fracture in Adulthood: YES Secondary Osteoporosis: 1. Type 1 Diabetes: NO 2. Hyperthyroidism: NO 3. Menopause before 45: NO 4. Malnutrition: NO 5. Chronic liver disease: NO Rheumatoid Arthritis: NO Current Tobacco Use: NO RISK FACTORS HISTORY OF: Family History of Osteoporosis: NO Active: YES Diet low in dairy products/other sources of calcium: NO Postmenopausal woman: AROUND AGE 46 Take estrogen and/or progesterone medications: NO Lost more than 2 inches in height since high school: YES MEDICATIONS: Thyroid Medications: YES Which medication: LEVOTHYROXINE How Long: APPRX 3-4 YEARS Additional Medications: LEVOTHYROXINE, METOPROLOL, PRAVASTATIN, Additional History: FIBROSIS OF THE LUNGS EXAM MEASUREMENTS: Bone mineral densitometry was performed using the Grata System. Bone mineral density as measured about the Lumbar spine is: ----- L1-L4(G/cm2): 1.276 T Score Values are as follows: ----- L2: 0.9 ----- L3: 1.9 ----- L4: 0.4 ----- L1-L4: 0.8 Bone mineral density has: INCREASED 4.0 % since study of: 2016 Bone mineral density about the R hip (g/cm2): 0.697 Bone mineral density about the L hip (g/cm2): 0.731 T Score values are as follows: -----R Neck: -2.5 -----L Neck: -2.2 -----R Total: -2.1 -----L Total: -1.6 Bone mineral density has: DECREASED -2.4 % since study of: 2016 IMPRESSION: Osteopenia NOTE: T-SCORE=SD OF THE YOUNG ADULT MEAN.
--- NOTE | 2020-02-17 09:25 | MM ---
Reason for exam: screening (asymptomatic). Last mammogram was performed 4 years and 4 months ago. History: Patient is postmenopausal. Family history of breast cancer in aunt. Physical Findings: A clinical breast exam by your physician is recommended on an annual basis and results should be correlated with mammographic findings. MG 3D Screening Mammo W/Cad Bilateral CC and MLO view(s) were taken. Prior study comparison: October 17, 2015, bilateral MG 3d screening mammo w/cad. The breast tissue is heterogeneously dense. This may lower the sensitivity of mammography. No significant changes when compared with prior studies. ASSESSMENT: Benign, BI-RAD 2 RECOMMENDATION: Routine screening mammogram of both breasts in 1 year.
== END | disposition home or self-care (01) ==
LOC: RADMAMWWP 07:33
PROVIDERS: ATTEND Internal Medicine
DX: Z12.31 Encounter for screening mammogram for malignant neoplasm of breast (principal); M85.80 Other specified disorders of bone density and structure, unspecified site
CPT/HCPCS: 77063; 77067; 77080

== ENCOUNTER → 2020-06-20 | Outpatient (CLI) | payer MEDICARE, BC ==
--- NOTE | 2020-06-20 12:04 | CT ---
EXAMINATION TYPE: CT chest wo con DATE OF EXAM: 06/20/2020 COMPARISON: 02/28/2019 HISTORY: Pulmonary Fibrosis CT DLP: 228 mGycm. Automated Exposure Control for Dose Reduction was Utilized. TECHNIQUE: CT scan of the thorax is performed without IV contrast. FINDINGS: LUNGS: Again seen is a subpleural reticulation with a peripheral predominance dating back to 03/10/20 17. The known honeycombing at the right lung base does not appear to have progressed from the prior o f 03/10/2018. This is mild. No new areas of honeycombing. Very mild diffuse cylindrical bronchiectasi s remains. No new focal consolidation or sizable pulmonary mass. No pleural effusion or pneumothorax. The previously seen 6 mm pulmonary nodule the left lower lobe is not well visualized given the nonco ntiguous slices. This appears to be present in the subpleural location on series 8 image 17. No inter shakeel growth. The lungs are grossly clear, there is no concerning parenchymal mass or nodule identified . There is no pleural effusion or pneumothorax seen. The tracheobronchial tree is patent. MEDIASTINUM: Lack of IV contrast is noted to limit evaluation for mediastinal and especially hilar ad enopathy. There are no definitive greater than 1 cm hilar or mediastinal lymph nodes. The heart is en larged and there is faint coronary artery calcification. Calcification near the aortic valve noted. A scending aorta measures 3.6 cm. OTHER: Hypertrophic and degenerative changes spine. There are compression deformities in the midthora cic spine of indeterminate age. IMPRESSION: 1. Chest appearance compatible with pulmonary interstitial fibrosis. Findings appear mildly progresse d relative to prior exam at the upper lobes and peripheral interlobular septal thickening.
== END | disposition home or self-care (01) ==
LOC: RADCTMAIN 10:38
PROVIDERS: ATTEND Internal Medicine
DX: J98.4 Other disorders of lung (principal)
CPT/HCPCS: 71250

== ENCOUNTER → 2020-09-05 | Outpatient (CLI) | payer MEDICARE, BC | END | disposition home or self-care (01) | LOC: LABPAT 08:55 | PROVIDERS: ATTEND Orthopaedic Surgery | DX: Z01.812 Encounter for preprocedural laboratory examination (principal) | CPT/HCPCS: 87070 ==

== ENCOUNTER → 2020-09-13 | Outpatient (CLI) | payer MEDICARE, BC ==
[2020-09-13 20:09] LABS: HCT 40.4 % (37.2-46.3); HGB 13.4 g/dL (12.0-15.0); MCH 33.3 pg (27.0-32.0); MCHC 33.2 g/dL (32.0-37.0); MCV 100.2 fL (80.0-97.0); Mean Platelet Volume 9.2 fL (9.5-12.2); Platelet Count 295 X 10*3/uL (140-440); RBC 4.03 X 10*6/uL (4.10-5.20); RDW 12.6 % (11.5-14.5); WBC 5.95 X 10*3/uL (4.50-10.00)
[2020-09-13 20:42] LABS: INR 0.94 (0.90-1.11); Partial Thromboplastin Time 28.2 sec (23.5-31.0); Prothrombin Time 10.3 sec (9.9-11.9)
[2020-09-13 22:03] LABS: African American GFR (CKD) 62.9 (60.0-200.0); Albumin 4.4 g/dL (3.80-4.90); Albumin/Globulin Ratio 1.42 (1.60-3.17); Anion Gap 12.9 mmol/L (4.00-12.00); Calcium 9.3 mg/dL (8.7-10.3); Carbon Dioxide 21.1 mmol/L (21.6-31.8); Globulin 3.1 g/dL (1.6-3.3); Non-African American GFR(CKD) 54.3 (60.0-200.0); Potassium 4.1 mmol/L (3.5-5.5); Total Bilirubin 0.6 mg/dL (0.3-1.2); Total Protein 7.5 g/dL (6.2-8.2)
== END | disposition home or self-care (01) ==
LOC: LABWHC1 13:59
PROVIDERS: ATTEND Internal Medicine
DX: J84.10 Pulmonary fibrosis, unspecified (principal)
CPT/HCPCS: 36415; 80053; 85027; 85610; 85730

== ENCOUNTER 2020-09-18 06:02 | Observation (INO) | payer MEDICARE, BC ==
[2020-09-13 15:51] VITALS: BMI 29.2
--- NOTE | 2020-09-17 09:11 | HP ---
HISTORY AND PHYSICAL CHIEF COMPLAINT: Left knee pain. HISTORY OF PRESENT ILLNESS: The patient is a 75-year-old female who presents with progressive left knee pain secondary to osteoarthrosis, worsening over the past several years. She notes medial pain with weightbearing activities and twisting. She notes it intermittently gives way. She limps. She does use a cane. She has tried medications in addition to previous multiple modalities without much relief. PAST MEDICAL HISTORY: Significant for pulmonary fibrosis, aneurysm, hypothyroidism, and arthritis. PAST SURGICAL HISTORY: Significant for right total knee arthroplasty. CURRENT MEDICATIONS: Levothyroxine. ALLERGIES: CEPHALOSPORINS AND CODEINE. FAMILY HISTORY: Significant for heart disease, cancer and diabetes. SOCIAL HISTORY: Negative for current tobacco or alcohol use. REVIEW OF SYSTEMS: Sixteen-point review of systems is otherwise reviewed and is noncontributory. PHYSICAL EXAMINATION: On examination, the patient is approximately 5 feet tall, 143 pounds of mesomorphic habitus. HEENT exam is nonfocal. Neck is supple. She has painless passive motion of her left hip. Straight leg raise is negative. Active motion left knee -10 to 110 degrees of flexion. She has mild effusion. She is tender about the medial and lateral joint line. Collaterals are stable, Angie is negative, Nando's is equivocal. She has genu varum alignment. Her distal neurovascular exam appears intact in the left lower extremity. Weightbearing notch, lateral Merchant views of the left knee obtained in the office show severe medial and patellofemoral compartment osteoarthrosis with [id number] changes and subchondral sclerosis. Significant spurring is noted. IMPRESSION: 1. Left knee severe medial and patellofemoral compartment osteoarthrosis. 2. History of pulmonary fibrosis. RECOMMENDATIONS: I talked to the patient at length regarding her condition and treatment options. At this point she is quite symptomatic and limited because of pain related to her osteoarthrosis despite previous conservative measures. After thorough discussion, she opts to proceed with surgery. We will plan to proceed with left total knee arthroplasty. We will institute DVT prophylaxis postoperatively. Risks and benefits were discussed at length in layman's terms. The patient underwent preoperative medical evaluation by Dr. Cutler. MMTHIAGOL / CONSTANZAN: [id number] /
[~2020-09-18 06:02] MED LIST changes: +ACETAMINOPHEN TAB 500 MG TAB PO PRN; +DEXAMETHASONE SOD PHOSPHATE 4 MG/ML 1 ML VIAL IV ONE; -LIDOCAINE 1% 20 ML VIAL (10MG/ML) FOR IV START INTRADERMA PRN; +MELOXICAM 7.5 MG TAB PO PRN; -MIDAZOLAM (PF) 2 MG/2 ML VIAL IV PRN; +MIDAZOLAM 2 MG/2 ML VIAL IV PRN; -TRANEXAMIC ACID 1,000 MG in SODIUM CHLORIDE 0.9% 50 ML IVPB ONE; -ceFAZolin IN SWFI 2 GM/20 ML SYRINGE IVP ONE; -fentaNYL (PF) 50 MCG/ML 2 ML AMP IV PRN
[2020-09-18] MEDS ORDERED: fentaNYL (PF) 50 MCG/ML 2 ML AMP IV PRN (07:00)
[2020-09-18] MEDS ORDERED: LACTATED RINGERS 1,000 ML IV ONE (07:20)
[2020-09-18] MEDS ORDERED: ROPIVACAINE 5 MG/ML 30 ML VIAL ONE (08:00)
[2020-09-18] MEDS ORDERED: PROPOFOL 10 MG/ML 20 ML VIAL IV ONE (08:00)
[2020-09-18] MEDS ORDERED: TRANEXAMIC ACID 1,000 MG/10 ML VIAL ONE (08:00)
[2020-09-18] MEDS ORDERED: SODIUM CHLORIDE 0.9% 100 ML BAG ONE (08:00)
[2020-09-18] MEDS ORDERED: PHENYLEPHRINE-0.9% NACL SYG 1,000 MCG/10 ML SYRINGE ONE (08:00)
[2020-09-18] MEDS ORDERED: MIDAZOLAM 2 MG/2 ML VIAL ONE (08:00)
[2020-09-18] MEDS ORDERED: ceFAZolin 3,000 MG in SODIUM CHLORIDE 0.9% IRRIGATIO 3,000 ML IRRIGATION ONE (08:27)
--- NOTE | 2020-09-18 08:28 | P.ANPRN ---
Procedure Note - Anesthesia - Nerve Block Performed Left Adductor Canal Infusion Time Out Performed: Yes Date of Procedure: 09/18/20 Procedure Start Time: Procedure Stop Time: : Location of Patient: PreOp Indication: Requested by Surgeon Specifically requested for management of pain by DrEda: Ezekiel Velázquez Sedation Type: Sedate with meaningful contact maintained Preparation: Sterile Prep, Sterile Dressing Position: Supine Needle Types: Pajunk Needle Gauge: 18, 20 Ultrasound used to visualize needle placement: Yes Ultrasound used to observe medication spread: Yes Injectate: 0.5% Ropivacaine (see comment for volume) (20 ml) Blood Aspirated: No Pain Paresthesia on Injection Noted: No Resistance on Injection: Normal Image Stored and Saved: Yes Events: Uneventful and Well Tolerated
[2020-09-18] MEDS ORDERED: ROPIVACAINE 0.2%-NS ON-Q PUMP 1,090 MG, EMPTY PAIN BALL 1 EACH MISCELLANE PRN (08:29)
--- NOTE | 2020-09-18 08:29 | P.ANPRN ---
Procedure Note - Anesthesia - Nerve Block Performed Left iPack Single Time Out Performed: Yes Date of Procedure: 09/18/20 Procedure Start Time: 07:40 Procedure Stop Time: 07:45 Location of Patient: PreOp Indication: Requested by Surgeon Specifically requested for management of pain by DrEda: Ezekiel Velázquez Sedation Type: Sedate with meaningful contact maintained Preparation: Sterile Prep Position: Right Lateral Needle Types: Pajunk Needle Gauge: 21 Ultrasound used to visualize needle placement: Yes Ultrasound used to observe medication spread: Yes Injectate: 0.5% Ropivacaine (see comment for volume) (20 ml) Blood Aspirated: No Pain Paresthesia on Injection Noted: No Resistance on Injection: Normal Image Stored and Saved: Yes Events: Uneventful and Well Tolerated
[2020-09-18] MEDS ORDERED: ONDANSETRON 4 MG/2 ML VIAL IVP PRN (09:33)
[2020-09-18] MEDS ORDERED: HYDROmorphone 0.5 MG/0.5 ML SYRINGE IVP PRN (09:33)
[2020-09-18] MEDS ORDERED: NALOXONE 0.4 MG/ML 1 ML VIAL IV PRN (09:33)
[2020-09-18] MEDS ORDERED: MAGNESIUM HYDROXIDE 2,400 MG/10 ML CUP PO PRN (09:33)
[2020-09-18] MEDS ORDERED: ACETAMINOPHEN TAB 325 MG TAB PO PRN (09:33)
--- NOTE | 2020-09-18 10:00 | P.OP ---
Date of Procedure: 09/18/20 Preoperative Diagnosis: Left knee severe tricompartmental osteoarthrosis Postoperative Diagnosis: Same Procedure(s) Performed: Left total knee arthroplastycementedcruciate retaining Implants: [employer] size 5 cemented femoral component, size 4 cemented tibial component, 10 mm articular surface, 32 mm cemented patellar component. This is a cruciate retaining implant. Anesthesia: regional, spinal Surgeon: Ezekiel Velázquez Design Intern #1: Tobin Magana Estimated Blood Loss (ml): 50 Pathology: other (Bone fragments) Condition: stable Disposition: PACU Indications for Procedure: The patient's a 75-year-old female presents with progressive left knee pain secondary to osteoarthrosis despite conservative measures. A discussion of the risks and benefits of operative intervention versus continued conservative me asures was made with patient. She opted to proceed with surgery. Operative risks to include infection, neurovascular injury, fracture, development of blood clots, possible component loosening/failure need for subsequent procedures was discussed. Informed consent was obtained. Operative Findings: As below Description of Procedure: The patient was brought to the operating room, and after induction of spinal anesthesia the left lower extremity was prepped and draped in a normal fashion. The tourniquet was inflated to 270 mmHg. A longitudinal incision extending 3 finger breaths above the superior pole of the patella extending to the medial aspect the tibial tubercle was then made. The skin and subcutaneous tissues were divided sharply. Electrocautery was used for hemostasis. A medial parapatellar arthrotomy was then performed. The medial soft tissues to include the superficial and deep portions of the medial collateral ligament as well as the medial hamstring tendons were elevated subperiosteally. The proximal medial tibia osteophytes were carefully removed. The patella was everted. The knee was flexed. A portion of the retropatellar fat pad was excised sharply. The anterior cruciate ligament was sacrificed. A starting hole was made in the distal femur 1 cm anterior to the posterior cruciate origin. An intramedullary femoral guide was gently inserted planning on 5 valgus distal cut with 9.5 mm distal resection. The cutting block was pinned in place. The distal cut was then made. The posterior referencing sizing guide was utilized. 3 of external rotation was built into the system and verified off the trans- epicondylar axis and the posterior condyles. I felt size 5 was most appropriate. The cutting block was pinned in place. The anterior, posterior, and chamfer cuts were then made. The bone fragments were removed. A sulcus cut was then made with the appropriate guide. The trial size 5 femoral component was then placed and was fully seated. There was good anterior to posterior and medial to lateral fit. The distal peg holes were then drilled. The trial component was then removed. Attention was then paid towards preparing the proximal tibia. An extra medullary guide was utilized in line with the tibial shaft and second metatarsal distally. A 3 posterior slope was planned. I planned on 2 mm resection from the medial compartment. The cutting block was pinned in place. The proximal tibial cut was then made. The bone was removed in one fragment. The remnants of the medial and lateral menisci were excised the capsule junction with electrocautery. The tibia sized most appropriately at size 4. The posterior osteophytes off the distal femur were carefully removed with a curved osteotome. The trial tibial and femoral components were placed along with a 10 millimeters articular surface. I was able to obtain full flexion and extension with good stability with varus and valgus stress. After several flexion and extension cycles, the tibial rotation was marked with electrocautery in line with the medial one third of the tibial tubercle. Attention was then paid towards preparing the patella. A patella reamer was utilized taking this down to 14 mm of bone stock. A good flush cut was made. The patella sized most appropriately at 32 millimeters. The peg holes were then drilled. The trial component was placed. The knee was taken through a range of motion. I had good patellofemoral tracking with no hands technique. The trial components were then removed. The tibia was prepared in the appropriate rotation with appropriate drill and keel punch. The flexion and extension gaps were checked and felt to be symmetric. The bony surfaces were prepared with pulsatile lavage and dried. The deep tibial component was then cemented in place and was fully seated. Excess cement was removed. The femoral component was cemented in place and was fully seated. Again excess cement was removed. The trial 10 millimeters surface was then inserted in the knee was put in full extension. The patella component was cemented in place. After the cement had sufficiently hardened, the knee was again taken through a range of motion. Again there was good stability in flexion and extension with varus and valgus stress. The trial articular surface was then removed. The final articular surface was placed and was impacted. Care was taken to avoid any soft tissue interposition. Pulsatile lavage was again utilized. The tourniquet was deflated with approximately 60 minutes total tourniquet time. There was minimal drainage therefore a deep drain was not placed. The medial parapatellar arthrotomy was then closed with #2 Ethibond suture. The subcutaneous tissues were reapproximated interrupted 2-0 Vicryl sutures. The skin was reapproximated with 3-0 subarticular strata fix suture. Skin tape and adhesive was applied. A sterile dressing was applied. The patient was then awoken from sedation and transferred to recovery room in good condition. Blood loss was estimated at 50 milliliters. No complications were incurred. Sponge and needle counts were correct at the end the case. Carlos MICHELLE assisted during the major components this case to include exposure, bone resection, and implantation.
--- NOTE | 2020-09-18 10:54 | XR ---
Limited left knee HISTORY: Status post left knee arthroplasty 2 views of the left knee Patient is status post left knee arthroplasty. There is anatomic alignment. Lucency is present in the soft tissues. IMPRESSION: Orthopedic follow-up.
[2020-09-18] MEDS: LACTATED RINGERS 1,000 ML IV SCH ×2 (14:29→15:12)
--- NOTE | 2020-09-18 15:26 | P.HPIM ---
History of Present Illness H&P Date: 09/18/20 Hospital course: Patient is a 75-year-old female with a past medical history of sinus tachycardia on metoprolol, hyperlipidemia on pravastatin, and hypothyroidism on level thyroxine. She is currently admitted under orthopedic surgery team with Dr. Espana status post total left knee arthroplasty secondary to severe tricompartmental osteoarthritis. We have been consulted for continued medical management throughout patient's hospitalization. Went to bedside to assess. Patient ambulatory to restroom with walker and assistance by RN. Patient reports complete control of postoperative pain. She reports she has been eating and drinking well since surgery and denies any episodes of postoperative nausea or vomiting. Patient denies any other complaints at this time including recent infections or exposure to known no contacts, fevers, chills, diaphoresis, headache, lightheadedness, dizziness, chest pain, palpitations, shortness of breath, dyspnea with exertion, abdominal pain, nausea, vomiting, or experiencing any numbness or tingling in extremities. Patient denies history of DVTs or PEs. Review of systems: Pertinent positives and negatives as discussed in HPI, a complete review of systems was performed and all other systems are negative. Physical exam: General: non toxic, no distress, appears at stated age Derm: warm, dry Head: atraumatic, normocephalic, symmetric Eyes: EOMI, no lid lag, anicteric sclera Mouth: no lip lesion, mucus membranes moist Cardiovascular: S1-S2 normal with regular rate and rhythm. No murmurs, gallops, or rubs noted. Posterior tibial pulses palpated bilaterally. Cap refill less than 2 seconds. Lungs: Respirations even, regular, and unlabored on room air. Lungs clear to auscultation bilaterally with no wheezes, rhonchi, or rales noted. No accessory muscle usage. Abdominal: soft, nontender to palpation, no guarding, no appreciable organomegaly Ext: Patient moving all extremities without difficulties. Postoperative dressing/splint in place to left lower extremity in place and is clean dry and intact with no evidence of bleeding at this time. Neuro: GCS 15. Speech clear. CN II-XI grossly intact, no focal neuro deficits Psych: Alert, oriented, appropriate affect Assessment and Plan of Care: Status post total left knee arthroplasty secondary to severe tricompartmental osteoarthritis -Pain management, dressing changes, wound care, DVT prophylaxis, PT/OT, and weightbearing to be managed per primary admitting orthopedic team. -Encourage incentive spirometry 10-15 times hourly while awake. -We will continue to follow along with primary admitting orthopedic team. -Will monitor morning labs CBC and BMP. History of sinus tachycardia -Continue daily medication management with metoprolol. Hyperlipidemia -Continue daily medication regimen with pravastatin. -Heart healthy diet. Hypothyroidism -Continue daily medication regimen with Synthroid. Thank you for allowing us to participate in the care of this pleasant patient. Do not hesitate to contact us with questions. Someone can be reached from the [facility] hospitalist group all hours of the day at [phone] or via [email or web address]. Past Medical History Past Medical History: GERD/Reflux, Hyperlipidemia, Osteoarthritis (OA), Skin Disorder, Thyroid Disorder Additional Past Medical History / Comment(s): hx migraines, "rapid heart beat", aortic aneursym, pulmonary fibrosis, hiatal hernia, occ. eczema, currently 2 spots of poison cornelius on thumb History of Any Multi-Drug Resistant Organisms: None Reported Past Surgical History: Joint Replacement, Tubal Ligation Additional Past Surgical History / Comment(s): rectal fissure, colonscopy, ike cataracts, right knee replaced Past Anesthesia/Blood Transfusion Reactions: Motion Sickness, Postoperative Nausea & Vomiting (PONV) Additional Past Anesthesia/Blood Transfusion Reaction / Comment(s): severe PONV Smoking Status: Never smoker - Past Family History Brother(s) Family Medical History: Cancer Sister(s) Family Medical History: Cancer Medications and Allergies Home Medications Medication Instructions Recorded Confirmed Type Ascorbic Acid [Vitamin C] 500 mg PO DAILY 05/03/18 09/13/20 History Levothyroxine Sodium [Synthroid] 50 mcg PO DAILY 05/03/18 09/13/20 History Metoprolol Tartrate [Lopressor] 25 mg PO QAM 05/03/18 09/13/20 History Multivitamins, Thera [Multivitamin 1 tab PO DAILY 05/03/18 09/13/20 History (formulary)] Acetaminophen [Tylenol Extra 500 mg PO Q6H PRN 09/13/20 09/13/20 History Strength] Cholecalciferol [Vitamin D3 (25 25 mcg PO DAILY 09/13/20 09/13/20 History Mcg = 1000 Iu)] Folate 1 tab PO DAILY 09/13/20 History Glucos Sul 2Kcl/MSM/Chond/C/Mn 2 each PO BID 09/13/20 09/13/20 History [Glucosamine Chondroitin Cap] Lutein 10 mg PO DAILY 09/13/20 09/13/20 History Pravastatin Sodium [Pravachol] 40 mg PO MOTH 09/13/20 09/13/20 History Ubidecarenone [Co Q-10] 100 mg PO DAILY 09/13/20 09/13/20 History Allergies Allergy/AdvReac Type Severity Reaction Status Date / Time amoxicillin [From Augmentin] Allergy Unknown Verified 09/18/20 06:49 clavulanic acid Allergy Unknown Verified 09/18/20 06:49 [From Augmentin] codeine Allergy Vomiting, Verified 09/18/20 06:49 "tongue gets funny" doxycycline Allergy Unknown Verified 09/18/20 06:49 horseradish Allergy throat Verified 09/18/20 06:49 swells, SOB rosuvastatin [From Crestor] Allergy Diarrhea Verified 09/18/20 06:49 hydromorphone [From Dilaudid] AdvReac Nausea & Verified 09/18/20 06:49 Vomiting tramadol AdvReac Nausea & Verified 09/18/20 06:49 Vomiting food Allergy Unknown Uncoded 09/18/20 06:49 Physical Exam Vitals: Vital Signs Temp Pulse Pulse Pulse Resp BP BP 09/18/20 14:33 97.6 F 59 L 18 116/72 09/18/20 13:36 71 16 118/59 09/18/20 12:30 72 16 117/65 09/18/20 12:00 69 16 123/63 09/18/20 11:30 61 18 113/60 09/18/20 11:00 62 16 118/64 09/18/20 10:45 59 L 16 119/64 09/18/20 10:30 64 16 113/59 09/18/20 10:15 60 16 118/60 09/18/20 09:59 96.8 F L 100 18 115/60 09/18/20 07:53 70 16 148/77 09/18/20 06:37 98.5 F 78 16 133/74 Pulse Ox 09/18/20 14:33 90 L 09/18/20 13:36 96 09/18/20 12:30 96 09/18/20 12:00 96 09/18/20 11:30 96 09/18/20 11:00 95 09/18/20 10:45 93 L 09/18/20 10:30 100 09/18/20 10:15 100 09/18/20 09:59 98 09/18/20 07:53 98 09/18/20 06:37 98 Intake and Output 09/18/20 09/18/20 09/18/20 06:59 14:59 22:59 Intake Total 951 Output Total 250 Balance 701 Intake: IV 951 Output: Urine 200 Estimated Blood Loss 50 Other: Weight 68.4 kg 68.4 kg Thrombosis Risk Factor Assmnt - Choose All That Apply Each Factor Represents 1 point: Abnormal pulmonary function (COPD), Obesity (BMI >25) Each Risk Factor Represents 3 Points: Age 75 years or older Each Risk Factor Represents 5 Points: Elective major lower extremity arthoplasty Thrombosis Risk Factor Assessment Total Risk Factor Score: 10 Thrombosis Risk Factor Assessment Level: High Risk
[2020-09-18] MEDS: HYDROcodone/APAP 5-325MG 1 EACH TAB PO PRN ×2 (16:02→22:07)
[2020-09-18] MEDS ORDERED: SENNOSIDES-DOCUSATE SODIUM 1 EACH TAB PO SCH (21:00)
[2020-09-19] MEDS: HYDROcodone/APAP 5-325MG 1 EACH TAB PO PRN ×2 (04:45→10:05)
[2020-09-19] MEDS ORDERED: LEVOTHYROXINE 50 MCG TAB PO SCH (06:30)
[2020-09-19 07:47] VITALS: RESP 18
[2020-09-19] MEDS ORDERED: METOPROLOL TARTRATE 25 MG TAB PO SCH (09:00)
[2020-09-19] MEDS ORDERED: RIVAROXABAN 10 MG TAB PO SCH (09:00)
[2020-09-19] MEDS ORDERED: MELOXICAM 7.5 MG TAB PO SCH (09:00)
--- NOTE | 2020-09-19 09:09 | P.PN ---
Subjective Progress Note Date: 09/19/20 Principal diagnosis: Status post left total knee arthroplasty Patient evaluated today at bedside, she is resting in her hospital bed. She is having some pain in the posterior aspect of her knee. She did take some pain medication last night. At her last total knee, there was concern with narcotic use due to the nausea and vomiting. She is not receiving IV pain medication at this time, just oral medication and seems to be doing fine. She is currently having no headaches, lightheadedness, chest pain or shortness of breath. Objective - Vital Signs Vital signs: Vital Signs Temp 97.6 F 09/19/20 07:46 Pulse 78 09/19/20 07:46 Resp 18 09/19/20 07:46 BP 104/76 09/19/20 07:46 Pulse Ox 93 L 09/19/20 07:46 Intake & Output 09/18/20 09/19/20 09/19/20 18:59 06:59 18:59 Intake Total 951 Output Total 250 Balance 701 Weight 68.4 kg Intake: IV 951 Output: Urine 200 Estimated Blood Loss 50 Other: # Voids 2 2 - Exam Left lower extremity: Incision is clean, dry, and intact. The exofin fusion tape is in good condition. There is minimal soft tissue swelling and ecchymosis surrounding the medial and lateral aspects of the incision. Calf is soft, no tenderness with palpation. Plantar flexion, dorsiflexion, EHL, FHL are intact. Sensory exam to light touch throughout the extremity is intact, dorsal pedis pulses 2+. Assessment and Plan Assessment: Status post left total knee arthroplasty Plan: Pain control, plan for discharge home on Mobic and also Wes[employer] 5 mg/325 mg GI and DVT prophylaxis, Eliquis 2.5 mg for 2 weeks Wound care instructions were discussed Icing and elevating techniques discussed Home physical therapy and nursing after discharge Medical recommendations Discharge planning: Planning for discharge on 09/19/2020 Time with Patient: Less than 30
[2020-09-19 09:23] LABS: Basophils # (A) 0.04 X 10*3/uL (0.00-0.10); Basophils % (A) 0.5 %; Eosinophils # (A) 0.14 X 10*3/uL (0.04-0.35); Eosinophils % (A) 1.9 %; HCT 30.6 % (37.2-46.3); HGB 10.1 g/dL (12.0-15.0); Lymphocytes # (A) 1.21 X 10*3/uL (0.90-5.00); Lymphocytes % (A) 16.3 %; MCH 33.6 pg (27.0-32.0); MCV 101.7 fL (80.0-97.0); Mean Platelet Volume 9.1 fL (9.5-12.2); Monocytes # (A) 0.89 X 10*3/uL (0.20-1.00); Neutrophils # (A) 5.11 X 10*3/uL (1.80-7.70); Platelet Count 215 X 10*3/uL (140-440); RBC 3.01 X 10*6/uL (4.10-5.20); WBC 7.41 X 10*3/uL (4.50-10.00)
--- NOTE | 2020-09-19 10:44 | P.PN ---
Subjective Progress Note Date: 09/19/20 Pt doing well, no further complaints. N/V resolved. Pain controlled. Ambulating well. Plan for d/c today by primary team. Objective - Vital Signs Vital signs: Vital Signs Temp 97.6 F 09/19/20 07:46 Pulse 78 09/19/20 08:00 Resp 18 09/19/20 08:00 BP 104/76 09/19/20 07:46 Pulse Ox 93 L 09/19/20 07:46 Intake & Output 09/18/20 09/19/20 09/19/20 18:59 06:59 18:59 Intake Total 951 Output Total 250 Balance 701 Weight 68.4 kg Intake: IV 951 Output: Urine 200 Estimated Blood Loss 50 Other: # Voids 2 2 - Exam Gen: awake, alert HEENT: normocephalic, atraumatic, good hearing acuity, moist mucous membranes Resp: good air exchange, breathing comfortably with no accessory muscle use CVS: good distal perfusion x 4, GI: soft, NTTP, ND : no SPT, no CVAT, danielson catheter not present MSK: no pitting edema, no clubbing Neuro: non-focal, moving all extremities Psych: cooperative, euthymic mood - Labs CBC & Chem 7: 09/19/20 06:36 Labs: Abnormal Lab Results - Last 24 Hours (Table) 09/19/20 Range/Units 06:36 RBC 3.01 L (4.10-5.20) X 10*6/uL Hgb 10.1 L (12.0-15.0) g/dL Hct 30.6 L (37.2-46.3) % MCV 101.7 H (80.0-97.0) fL MCH 33.6 H (27.0-32.0) pg MPV 9.1 L (9.5-12.2) fL Assessment and Plan Assessment: Status post total left knee arthroplasty secondary to severe tricompartmental osteoarthritis -Pain management, dressing changes, wound care, DVT prophylaxis, PT/OT, and weightbearing to be managed per primary admitting orthopedic team. -Encourage incentive spirometry 10-15 times hourly while awake. -We will continue to follow along with primary admitting orthopedic team. -Will monitor morning labs CBC and BMP. History of sinus tachycardia -Continue daily medication management with metoprolol. Hyperlipidemia -Continue daily medication regimen with pravastatin. -Heart healthy diet. Hypothyroidism -Continue daily medication regimen with Synthroid. Thank you for allowing us to participate in the care of this pleasant patient. Do not hesitate to contact us with questions. Someone can be reached from the [facility] hospitalist group all hours of the day at [phone] or via [employer]. Pt is stable for discharge from medical perspective.
--- NOTE | 2020-09-19 12:09 | P.DS ---
Providers Date of admission: 09/19/20 08:33 Expected date of discharge: 09/19/20 Attending physician: Ezekiel Velázquez Consults: 09/18/20 09:35 Consult Physician Routine Consulting Provider: Nghia Ford Consult Reason/Comments: Medical Management Do you want consulting provider notified?: Yes Primary care physician: Robert Cutler MD Hospital Course: Date of admission: 09/18/2020 Date of discharge: 09/19/2020 Admission diagnosis: Status post left total knee arthroplasty Discharge diagnosis: Same Attending physician: Dr. Velázquez Surgical procedures: Left total knee arthroplasty Brief history: Patient is a 75-year-old male with a history of progressive primary left knee osteoarthritis. At this point patient has failed conservative treatment measures and has opted to proceed with a elective left total knee arthroplasty. Hospital course: Details of patient's surgery can be found in operative report. Patient tolerated the procedure well and was subsequently transported to orthopedic floor. Patient's orthopeidc and medical care was provided daily. Patient had daily laboratory tests performed for evaluation of overall blood counts. Patient had daily physical therapy to include strengthening range of motion as well as education with walker ambulation. Patient was treated with Xarelto for their postoperative DVT prophylaxis during their inpatient stay. Aly arroyo was noted to have a relatively uneventful postoperative course. Patient reported satisfactory pain control with oral pain medications by postoperative day 0. Patient showed satisfactory progress with physical therapy. Patient moved steadily through the program and had no difficulty meeting the goals by postoperative day 1. Given patient's otherwise satisfactory course and having met physical therapy goals, plan is to discharge patient home on postoperative day 1. Discharge condition/disposition: Patient will be discharged home in stable condition. Discharge medications: Instructions are given on resumption of patient's normal daily medications per primary care recommendation, in addition patient will be prescribed Hines 5 mg/325 mg, Colace 100 mg, Mobic 15 mg, Eliquis 2.5 mg. Discharge instructions: 1. Wound care and infection precautions, keep incision dry and covered while showering, no lotions, creams, moisturizers. No soaking, tubs, pools, hottubs. Do not scrub over the incision. 2. Weight-bear as tolerated with walker / cane until follow-up. 3. Ice and elevate when necessary. Do not exceed 20 minutes per hour with ice pack. 4. Utilize compression sleeve until seen at first follow up appointment. 5. Visiting nursing care. 6. Home physical therapy including home CPM. 7. Pain meds and anticoagulants per prescription. 8. Pain medication has potential to cause constipation. Increase oral fluid and fiber intake. Contact primary care provider if you have not had a bowel movement within 48 hours after discharge 9. No anti-inflammatory medication until discussed at first post operative visit, this including Motrin, Aleve 10. Follow up in office at 2 weeks postop with Carlos Magana PA-C/Jose F Eddy 11. Follow up with your primary care doctor 7-10 days after discharge. 12. Contact [facility] with any questions, . Procedures: Left total knee arthroplasty Patient Condition at Discharge: Good Plan - Discharge Summary Discharge Rx Participant: No New Discharge Prescriptions: New Docusate [Colace] 100 mg PO DAILY #30 capsule Apixaban [Eliquis] 2.5 mg PO BID #60 tab Meloxicam [Mobic] 15 mg PO DAILY PRN #30 tab PRN Reason: Pain HYDROcodone/APAP 5-325MG [Hines 5-325] 1 tab PO Q6HR PRN #28 tab PRN Reason: Pain No Action Metoprolol Tartrate [Lopressor] 25 mg PO QAM Levothyroxine Sodium [Synthroid] 50 mcg PO DAILY Multivitamins, Thera [Multivitamin (formulary)] 1 tab PO DAILY Ascorbic Acid [Vitamin C] 500 mg PO DAILY Ubidecarenone [Co Q-10] 100 mg PO DAILY Glucos Sul 2Kcl/MSM/Chond/C/Mn [Glucosamine Chondroitin Cap] 2 each PO BID Acetaminophen [Tylenol Extra Strength] 500 mg PO Q6H PRN PRN Reason: Pain Pravastatin Sodium [Pravachol] 40 mg PO MOTH Cholecalciferol [Vitamin D3 (25 Mcg = 1000 Iu)] 25 mcg PO DAILY Lutein 10 mg PO DAILY Folate 1 tab PO DAILY Discharge Medication List Ascorbic Acid [Vitamin C] 500 mg PO DAILY 05/03/18 [History] Levothyroxine Sodium [Synthroid] 50 mcg PO DAILY 05/03/18 [History] Metoprolol Tartrate [Lopressor] 25 mg PO QAM 05/03/18 [History] Multivitamins, Thera [Multivitamin (formulary)] 1 tab PO DAILY 05/03/18 [History] Acetaminophen [Tylenol Extra Strength] 500 mg PO Q6H PRN 09/13/20 [History] Cholecalciferol [Vitamin D3 (25 Mcg = 1000 Iu)] 25 mcg PO DAILY 09/13/20 [History] Folate 1 tab PO DAILY 09/13/20 [History] Glucos Sul 2Kcl/MSM/Chond/C/Mn [Glucosamine Chondroitin Cap] 2 each PO BID 09/13/20 [History] Lutein 10 mg PO DAILY 09/13/20 [History] Pravastatin Sodium [Pravachol] 40 mg PO MOTH 09/13/20 [History] Ubidecarenone [Co Q-10] 100 mg PO DAILY 09/13/20 [History] Apixaban [Eliquis] 2.5 mg PO BID #60 tab 09/19/20 [Rx] Docusate [Colace] 100 mg PO DAILY #30 capsule 09/19/20 [Rx] HYDROcodone/APAP 5-325MG [Hines 5-325] 1 tab PO Q6HR PRN #28 tab 09/19/20 [Rx] Meloxicam [Mobic] 15 mg PO DAILY PRN #30 tab 09/19/20 [Rx] Follow up Appointment(s)/Referral(s): [facility],Equipment [NON-STAFF] - (*Please call [facility] once home to arrange delivery of the Continuous Passive Motion (CPM) machine. ) [facility], [NON-STAFF] - ([facility] will call you to arrange your first home visit. ) Tobin Magana, PAC [PHYSICIAN OCCUPATIONAL THERAPY SPECIALIST] - 2 Weeks Activity/Diet/Wound Care/Special Instructions: Orthopedic Discharge Instructions: 1. Wound care and infection precautions, keep incision dry and covered while showering, no lotions, creams, moisturizers. No soaking, pools, hot tubs. Do not scrub over incision. 2. Weight-bear as tolerated with walker / cane until follow-up. 3. Ice and elevate when necessary. Do not exceed 20 minutes per hour with ice pack. 4. Utilize compression sleeve until seen at first follow up appointment. 5. Pain meds and anticoagulants per prescription. 6. Pain medication has potential to cause constipation. Increase oral fluid and fiber intake. Contact primary care provider if you have not had a bowel movement within 48 hours after discharge. 7. No anti-inflammatory medication until discussed at first post operative visit, this including Motrin, Aleve, Mobic, Diclofenac. 8. Follow up in office at 2 weeks postop with Carlos Magana PA-C/Jose F Kahn PA-C 9. Follow up with your primary care doctor 7-10 days after discharge. 10. Contact [facility] with any questions, . Discharge Disposition: HOME WITH HOME HEALTH SERVICES
[2020-09-19 14:37] VITALS: BP 104/75; PULSE 78; TEMP 97.6
[2020-09-20] MEDS ORDERED: PRAVASTATIN SODIUM 40 MG TAB PO SCH (21:00)
== END 2020-09-19 15:05 | disposition home health service (06) ==
LOC: OR 06:02 → 4SSUR 13:37 → OR 09-19 08:33 → 4SSUR 09-19 08:33
PROVIDERS: ADMIT Orthopaedic Surgery; ATTEND Orthopaedic Surgery
DX: M17.12 Unilateral primary osteoarthritis, left knee (principal); J84.10 Pulmonary fibrosis, unspecified; E03.9 Hypothyroidism, unspecified; E78.5 Hyperlipidemia, unspecified; R00.0 Tachycardia, unspecified; I71.9 Aortic aneurysm of unspecified site, without rupture; K21.9 Gastro-esophageal reflux disease without esophagitis; L23.7 Allergic contact dermatitis due to plants, except food; G43.909 Migraine, unspecified, not intractable, without status migrainosus; K44.9 Diaphragmatic hernia without obstruction or gangrene; E66.9 Obesity, unspecified; Z68.29 Body mass index [BMI] 29.0-29.9, adult; Z20.822 Contact with and (suspected) exposure to COVID-19; Z79.890 Hormone replacement therapy; Z79.899 Other long term (current) drug therapy; Z88.0 Allergy status to penicillin; Z88.1 Allergy status to other antibiotic agents; Z88.5 Allergy status to narcotic agent; Z91.018 Allergy to other foods; Z98.51 Tubal ligation status; Z98.42 Cataract extraction status, left eye; Z98.41 Cataract extraction status, right eye; Z96.651 Presence of right artificial knee joint; Z98.890 Other specified postprocedural states; Z83.3 Family history of diabetes mellitus; Z80.9 Family history of malignant neoplasm, unspecified; Z82.49 Family history of ischemic heart disease and other diseases of the circulatory system
CPT/HCPCS: 27447; 97110; 97161; 64999; 64448; 76942; 85025; 88300; 87635; 73560; G0378; C1713; C1776; J2250; J1100; J0690 ×3; J2405; J3010; J2795 ×2; J2370; J2704

== ENCOUNTER → 2022-02-17 | Outpatient (CLI) | payer MEDICARE, BC ==
--- NOTE | 2022-02-17 12:38 | BD ---
EXAMINATION TYPE: Axial Bone Density DATE OF EXAM: 02/17/2022 COMPARISON: NONE CLINICAL HISTORY: 76 years year old Female. ICD-10 CODE: M85.851 BONE DENSITY Height: 4 FT 10 1/2 IN Weight: 146 FRAX RISK QUESTIONS: Alcohol (3 or more units per day): NO Family History (Parent hip fracture): NO Glucocorticoids (More than 3mos): NO (Ex: prednisone, prednisolone, methylprednisolone, dexamethasone, and hydrocortisone). History of Fracture in Adulthood: YES Secondary Osteoporosis: 1. Type 1 Diabetes: NO 2. Hyperthyroidism: NO 3. Menopause before 45: NO 4. Malnutrition: NO 5. Chronic liver disease: NO Rheumatoid Arthritis: NO Current Tobacco Use: NO RISK FACTORS HISTORY OF: Surgery to Spine/Hip(right/left)/Wrist (right/left): NO Family History of Osteoporosis: NO Active: YES Diet low in dairy products/other sources of calcium: NO Postmenopausal woman: YES Take estrogen and/or progesterone medications: NO Lost more than 2 inches in height since high school: NO Frequent falls: NO Poor Health: GOOD Hyperparathyroidism: NO Adrenal Insufficiency: NO MEDICATIONS: Thyroid Medications: YES Which medication: LEVOTHYROXINE How Long: APPROX 3 YEARS Additional Medications: METOPROLOL, LEVOTHYROXINE,PREVASTATAN Additional History: EXAM MEASUREMENTS: Bone mineral densitometry was performed using the [employer] System. Bone mineral density as measured about the Lumbar spine is: ----- L1-L4(G/cm2): 1.210 T Score Values are as follows: ----- L1: 0.0 ----- L2: -2.4 ----- L3: 0.5 ----- L4: 2.4 ----- L1-L4: 0.3 Bone mineral density has: DECREASED-7.3 % since study of: 2019 Bone mineral density about the R hip (g/cm2): 0.692 Bone mineral density about the L hip (g/cm2): 0.686 T Score values are as follows: -----R Neck: -2.5 -----L Neck: -2.5 -----R Total: -2.1 -----L Total: -1.8 Bone mineral density has: DECREASED -1.7 % since study of: 2019 FRAX%s: The graph provided illustrates a 9.4 % chance for a major osteoporotic fx and a 3.4 % chance for the hips probability for fx in 10 years time. IMPRESSION: Osteopenia (T Score between -2.5 and -1). There is slightly increased risk of fracture and the patient may be considered for treatment. Re-Screen 2-5 years. NOTE: T-SCORE=SD OF THE YOUNG ADULT MEAN.
--- NOTE | 2022-02-18 08:39 | MM ---
Reason for Exam: Screening (asymptomatic). Last mammogram was performed 2 year(s) and 0 month(s) ago. Patient History: Menarche at age 10. First Full-Term at age 19. Postmenopausal. Paternal aunt had breast cancer at or over age 50. Risk Values: Sara 5 year model risk: 1.5%. NCI Lifetime model risk: 2.8%. Prior Study Comparison: 07/14/2007 Bilateral Screening Mammogram, [facility]. 10/17/2015 Bilateral Screening Mammogram, [facility]. 02/15/2020 Bilateral Screening Mammogram, [facility]. Tissue Density: There are scattered fibroglandular densities. Findings: Analyzed By CAD. There is no suspicious group of microcalcifications or new suspicious mass in either breast. No significant change from prior exams. Overall Assessment: Benign, BI-RAD 2 Management: Screening Mammogram of both breasts in 1 year. A clinical breast exam by your physician is recommended on an annual basis and results should be correlated with mammographic findings. Electronically signed and approved by: Lalo Hernandez D.O.
== END | disposition home or self-care (01) ==
LOC: RADMAMWWP 09:16
PROVIDERS: ATTEND Internal Medicine
DX: Z12.31 Encounter for screening mammogram for malignant neoplasm of breast (principal); M85.89 Other specified disorders of bone density and structure, multiple sites; Z78.0 Asymptomatic menopausal state; Z80.3 Family history of malignant neoplasm of breast
CPT/HCPCS: 77063; 77067; 77080

== ENCOUNTER → 2023-03-13 | Outpatient (CLI) | payer MEDICARE, BC ==
--- NOTE | 2023-03-16 15:48 | MM ---
Reason for Exam: Screening (asymptomatic). Last mammogram was performed 1 year(s) and 1 month(s) ago. Patient History: Menarche at age 10. First Full-Term at age 19. Postmenopausal. Paternal aunt had breast cancer at or over age 50. Risk Values: Sara 5 year model risk: 1.5%. NCI Lifetime model risk: 2.5%. Prior Study Comparison: 10/17/2015 Bilateral Screening Mammogram, [facility]. 02/15/2020 Bilateral Screening Mammogram, [facility]. 02/17/2022 Bilateral MG 3D screening mammo w/cad, [facility]. Tissue Density: There are scattered fibroglandular densities. Findings: Analyzed By CAD. Pattern appears symmetrical and stable. No significant interval change is evident. No suspicious groups of microcalcifications, spiculated or lobular masses, architectural distortion or other secondary signs of malignancy are mammographically apparent. Overall Assessment: Benign, BI-RAD 2 Management: Screening Mammogram of both breasts in 1 year. A negative mammogram report should not preclude additional follow up of suspicious palpable abnormalities. Patient should continue monthly self breast exam. A clinical breast exam by your physician is recommended on an annual basis and results should be correlated with mammographic findings. Electronically signed and approved by: Osito Tenorio D.O. Radiologis
== END | disposition home or self-care (01) ==
LOC: RADMAMWWP 10:03
PROVIDERS: ATTEND Internal Medicine
DX: Z12.31 Encounter for screening mammogram for malignant neoplasm of breast (principal); Z80.3 Family history of malignant neoplasm of breast; Z78.0 Asymptomatic menopausal state
CPT/HCPCS: 77063; 77067

== ENCOUNTER → 2024-07-11 | Outpatient (CLI) | payer MEDICARE, BC ==
--- NOTE | 2024-07-11 11:40 | CT ---
EXAMINATION TYPE: CT chest wo con CT DLP: 163.0 mGycm, Automated exposure control for dose reduction was used. DATE OF EXAM: 07/11/2024 11:22 AM COMPARISON: Chest radiograph 02/18/2024, CT chest 06/20/2020, 02/28/2019, 03/10/2018, 03/10/2017 CLINICAL INDICATION:Female, 79 years old with history of R79.89 OTHER SPECIFIED ABNORMAL FINDINGS OF BLOOD; PHH, cough and SOB TECHNIQUE: Multiple axial images were obtained through the chest without IV contrast. Lack of IV or o ral contrast limits evaluation of solid and hollow organ viscera. . Coronal and sagittal reformats re viewed. FINDINGS: LUNGS/ PLEURA: No pleural effusion, pneumothorax, or focal consolidation. No distinct suspicious pulm onary nodule or mass. Increasing diffuse subpleural reticular opacities. No honeycombing at the right lung base has not progressed from prior exam. No new areas of honeycombing. There is some very mild bilateral lower lobe cylindrical bronchiectasis redemonstrated. AIRWAY: Patent and unremarkable.. HEART: Cardiomegaly is demonstrated. . No pericardial effusion. No significant coronary artery calcif ications. MEDIASTINUM: No gross evidence of adenopathy. VASCULATURE: No aortic aneurysm. Minimal atherosclerotic calcification of the aorta and its branches . MUSCULOSKELETAL: No acute osseous abnormalities. Demonstration of superior endplate compression defor mity of the T9 vertebral body. Redemonstration of superior endplate compression deformity of the T7 v ertebral body from recent radiograph. No retropulsion. Approximately 25% height loss. Large Schmorl's node involving the inferior endplate of the T10 vertebral body again. Multilevel degenerative disc d isease with anterior osteophytosis. SOFT TISSUES/LYMPH NODES: Unremarkable. LOWER NECK: No significant findings. UPPER ABDOMEN: No significant findings. IMPRESSION: 1. Progression of pulmonary interstitial fibrosis from prior CT. Again considerations are for Early U IP or fibrotic NSIP. 2. Redemonstration of of T7 and T9 compression deformities. [facility], , 07/11/2024 11:38 AM
== END | disposition home or self-care (01) ==
LOC: RADCTMAIN 10:27
PROVIDERS: ATTEND Internal Medicine
DX: J84.89 Other specified interstitial pulmonary diseases (principal); J84.10 Pulmonary fibrosis, unspecified; M48.54XA Collapsed vertebra, not elsewhere classified, thoracic region, initial encounter for fracture; R79.89 Other specified abnormal findings of blood chemistry
CPT/HCPCS: 71250